=== PATIENT | male | born 1975 | race Caucasian/White ===

== ENCOUNTER → 2018-07-07 11:37 | Outpatient (POV) | payer BC, SELFPAY | PROVIDERS: Visit Provider Dermatology | DX: Z00.00 Encounter for general adult medical examination without abnormal findings (principal) ==

== ENCOUNTER → 2018-10-13 14:06 | Outpatient (POV) | payer BC, SELFPAY | PROVIDERS: Visit Provider Dermatology | DX: Z00.00 Encounter for general adult medical examination without abnormal findings (principal) ==

== ENCOUNTER → 2019-01-28 16:12 | Outpatient (CLI) | payer BC, SELFPAY ==
[2019-01-28 16:39] LABS: Blood Urea Nitrogen 13 mg/dL (7-18); Creatinine,Serum 1.03 mg/dL (0.70-1.30); Estimated Glomerular Filt Rate 78 ml/min (>60); GFR (African American) 94 ML/MIN (>60)
--- NOTE | 2019-01-28 18:19 | CT_ITS ---
PROCEDURE: CT ABDOMEN PELVIS W CON CLINICAL HISTORY: LLQ PAIN Left-sided abdominal pain. COMPARISON: ABDPELW/O CT ABD PELVIS W/O CONTRAST from 09/09/2016 TECHNIQUE: 75 mL Optiray 350 Axial images obtained with sagittal and coronal reformats. All CT scans at the facility use one or more dose reduction, viz: automated exposure control, ma/kV adjustment per patient size (including targeted exams where dose is matched to indication, i.e. head), or iterative reconstruction technique. FINDINGS: There is calcified granuloma in the right lung base. The liver, gallbladder, spleen, adrenal glands, and pancreas have an unremarkable appearance. There are surgical clips along the tail the pancreas. There is a 5 cm left renal cyst. Nonobstructing left renal calculi are noted measuring up to 4 mm. No hydronephrosis. No ureteral calculi. No intestinal obstruction or free air. The appendix is not clearly delineated. Surgical clips are present along the left pericolic gutter. There is mild thickening of the sigmoid colon and rectum which may be seen with colitis/proctitis. No evidence of diverticulitis. The prostate is slightly enlarged. Anastomosis has an unremarkable appearance at the sigmoid area. 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 No acute bony anomalies. IMPRESSION: There are postsurgical changes of the abdomen. There is mild thickening of the sigmoid colon and rectum. This is nonspecific and could be due to nondistention versus proctocolitis. Correlation with clinical parameters are needed. Other nonacute findings as described above. Dictated by: Acosta Dutta MD 01/29/2019 07:48 Signed by: <Electronically signed by Acosta Dutta MD in [place]> 01/29/2019 07:48
== END ==
PROVIDERS: Visit Provider Family Medicine
DX: R10.32 Left lower quadrant pain (principal); R10.9 Unspecified abdominal pain; K57.90 Diverticulosis of intestine, part unspecified, without perforation or abscess without bleeding; Z98.890 Other specified postprocedural states
CPT/HCPCS: 36415; 74177; 82565; 84520; Q9967

== ENCOUNTER → 2019-11-16 10:45 | Outpatient (POV) | payer BC, SELFPAY | PROVIDERS: PCP Family Medicine; Visit Provider Physician Assistant | DX: Z00.00 Encounter for general adult medical examination without abnormal findings (principal) ==

== ENCOUNTER → 2019-12-17 07:43 | Outpatient (CLI) | payer BC, SELFPAY ==
--- NOTE | 2019-12-17 07:55 | CT_ITS ---
PROCEDURE: CT ABDOMEN PELVIS WO CON CLINICAL INDICATION: KIDNEY STONES COMPARISON: CT ABDOMEN PELVIS WO CON from 02/10/2019 TECHNIQUE: Axial images obtained with sagittal and coronal reformats. All CT scans at the facility use one or more dose reduction, viz: automated exposure control, ma/kV adjustment per patient size (including targeted exams where dose is matched to indication, i.e. head), or iterative reconstruction technique. FINDINGS: Lower thorax: The lower lung mckoy are clear and there is no pleural fluid. ABDOMEN: Liver: The liver is normal in size and shows overall decreased density consistent with mild diffuse hepatic steatosis. There are no focal lesions seen. Gallbladder: The gallbladder is normal in size. The tiny partially calcified gallstone near the neck of the gallbladder stable and unchanged from previous exam. Pancreas: No masses or peripancreatic fluid collections. Spleen: unremarkable Adrenals: unremarkable Kidneys/ureters: The kidneys are normal size. There is a stable benign-appearing exophytic cortical cyst midpole left kidney measuring 5.6 by 5.0 by 5.0 cm. There is a 3-4 mm nonobstructing calculus lower pole calyx left kidney. The right kidney appears normal. ABDOMEN & PELVIS: Stomach bowel: The stomach appears normal. Small bowel is unremarkable. There is moderate stool and gas seen in the cecum and ascending and transverse colon. There multiple surgical clips left upper quadrant and adjacent to the descending colon. There are circumferential surgical clips near the rectosigmoid junction. Peritoneum: No abnormal fluid collections. No obvious inflammatory changes. No free air. Lymph nodes: No enlarged lymph nodes apparent. Vasculature: No evidence of abdominal aortic aneurysm. No retroperitoneal hemorrhage evident. Bones: No acute fracture PELVIS: Reproductive: unremarkable Bladder: The urinary bladder is partially decompressed. The prostate is borderline enlarged. Appendix: Not definitely visualized but there are no findings to suggest appendicitis. IMPRESSION: Stable exophytic benign-appearing cortical cysts left kidney along with nonobstructing calculus lower pole left kidney, post surgical changes likely involving the descending and sigmoid colon. No acute intra-abdominal or pelvic pathology identified. Probable partially calcified gallstone as noted on the previous CT exam. Dictated by: Dr. Carroll Finn MD 12/17/2019 08:[address] Carroll Finn MD in [place] 12/17/2019 08:31
== END ==
PROVIDERS: PCP Family Medicine; Visit Provider Family Medicine
DX: R10.9 Unspecified abdominal pain (principal); Z87.442 Personal history of urinary calculi
CPT/HCPCS: 74176

== ENCOUNTER 2019-12-30 13:00 | Outpatient (RCR) | payer BC, SELFPAY ==
--- NOTE | 2019-11-29 11:17 | HMH.PTOPEV ---
PT Outpatient Evaluation Rehab PT Outpatient Evaluation Start: 11/29/19 08:53 Freq: Status: Active Protocol: Document 11/29/19 11:05 CARA (Rec: 11/29/19 11:17 PHORNE [id number]) Electronically Signed By Guerrero Smith, PT 11/29/19 11:05 Outpatient Therapy Subjective History Subjective History Pt is 44 yo wm who presents with c/o L lateral hip pain and intermittent numbness/ tingling throughout the L LE x ~ 3 wks. He reports having similar symptoms from time to time over the past 10 yrs. He reports stretching and ice help his symptoms. He reports PMH of DM-I. R LE 8 mm long with leg length measurments this date. Chief Complaint Pain Symptom Type Ache,Sharp,Numbness,Tingling Symptoms Relieved By Rest/Positioning,Ice Symptoms Aggravated By Physical Activity,Walking Prior Functional Limitations None Current Functional Limitations Walking Symptom Description Constant but Variable Level of pain today (0-10) 2 Pain scale - at its worst (0-10) 8 Hip/Knee Eval Palpation Tenderness right Hip Palpation Findings Tenderness MMT Hip Flexion Strength Grade 5 Normal Hip Abduction Strength Grade 4 Good Hip Adduction Strength Grade 5 Normal Hip Extension Strength Grade 5 Normal Special Tests Hip Bowstring (Cram) Test Negative Left,Positive Right Sciatic Nerve Tension Test Negative Left,Positive Right Hip Scouring (Quadrant) Test Negative Left,Negative Right Outpatient Therapy Assessment Impairments Problems/Impairmments Palpation Tenderness,Impaired Strength,Impaired Endurance, Impaired Walking,Subjective C/ O Pain,Impaired Self Care/Self Management Prognosis Rehab Potential Good Clinical Impression Consistent with Diagnosis Yes Short Term Goals Number of Weeks 4 Decreased Palpation Tenderness Yes: to min Increase Strength Yes: R LE 4+/5 throughout Decrease Subjective C/O Pain Yes: 10/09 Patient to be Ind w/ HEP Yes Longterm Goals Number of Weeks 8 Decreased Palpation Tenderness Yes: to none Increase Strength Yes: R LE 5/5 throughout Increase Ability to Walk Yes Decrease Subjective C/O Pain Yes: 06/11 Patient to be Ind w/ Advanced HEP Yes Outpatient Therapy Plan of Care Treatment Plan May Include Therapeutic Exercise Including Bailey
--- NOTE | 2019-12-28 13:56 | HMH.RHREAS ---
Rehab Reassessment Rehab OP Re-assessment Start: 12/28/19 13:52 Freq: Status: Active Protocol: Document 12/28/19 13:53 CARA (Rec: 12/28/19 13:56 CARA [id number]) Electronically Signed By Guerrero Smith, PT 12/28/19 13:53 Rehab Re-assessment Subjective Subjective Pt reports feeling much better , but continued symptoms in the R lower leg (numbness/ tingling and pain intermittently). Objective Objective Notes R LE MMT grossly 4+/5 throughout hip. Continues to present without pelvic rotation. Assessment Progress Assessment Progressing as Expected Assessment Notes Continues to improve steadily with strength, no pain now in R greater troch. Patient goals met ST,2,3,4 Goals Not Met LT,2,3,4,5 Revised Goals none Plan Plan Continue per initial POC. Frequency of Therapy 2 x/wk Duration of therapy 8 wks Time and Billing Re-Eval Time 15 Re-Eval Billing Units 1 PHYSICIAN CERTIFICATION: I certify the specified therapy services for Sachin Salas are required, authorized, and reviewed every 30 days.
== END 2019-12-30 13:05 | disposition home or self-care (01) ==
LOC: PT 13:00
PROVIDERS: PCP Family Medicine; Visit Provider Family Medicine
DX: M70.61 Trochanteric bursitis, right hip (principal); G57.01 Lesion of sciatic nerve, right lower limb
CPT/HCPCS: 20561; 97010; 97012; 97014; 97033; 97035; 97110; 97140; 97163; 97164; 97760; G0283

== ENCOUNTER → 2020-01-18 08:53 | Outpatient (CLI) | payer BC, SELFPAY ==
[2020-01-18 09:06] LABS: Basophils % 0.4 % (0.1-2.0); Eosinophils # 0.2 K/mm3 (0.0-0.4); Eosinophils % 2.7 % (0.1-12.0); Hematocrit 46.1 % (42.0-52.0); Hemoglobin 15.9 g/dL (14.1-18.0); Lymphocytes # 2.6 K/mm3 (0.7-4.5); Lymphocytes % 45.1 % (10-50); Mean Corpuscular HGB Conc 34.4 g/dL (31.8-35.4); Mean Corpuscular Hemoglobin 30.5 pg (27.0-31.2); Mean Corpuscular Volume 88.6 fl (80-94); Mean Platelet Volume 8.6 fl (7.4-10.4); Monocytes # 0.5 K/mm3 (0.1-1.0); Monocytes % 7.8 % (1.7-9.3); Neutrophils # 2.5 K/mm3 (1.8-7.8); Neutrophils % 43.9 % (37.0-80.0); Platelet Count 175 K/mm3 (142-424); Red Blood Count 5.21 M/mm3 (4.60-6.20); Red Cell Distribution Width 13.5 % (11.5-17.5); White Blood Count 5.8 K/mm3 (4.8-10.8)
[2020-01-18 09:13] LABS: Blood Urea Nitrogen 23 mg/dl (9-20); Estimated Glomerular Filt Rate 91 ml/min (>60); GFR (African American) 110 ML/MIN (>60)
[2020-01-18 09:19] LABS: Activated Partial Thrombo Time 23.4 seconds (23.6-34.0); Prothrombin Time 10.3 seconds (9.4-11.8)
[2020-01-18 09:44] LABS: POC Glucose,Bedside 98 (70-110)
--- NOTE | 2020-01-18 10:17 | CT_ITS ---
PROCEDURE: CT BIOPSY GUIDED NEEDLE CLINICAL HISTORY: renal cyst Renal cyst aspiration Left flank pain with enlarging renal cyst COMPARISON: CT CT ABDOMEN PELVIS WO CON from 12/17/2019 TECHNIQUE: Axial images obtained with sagittal and coronal reformats. All CT scans at the facility use one or more dose reduction, viz: automated exposure control, ma/kV adjustment per patient size (including targeted exams where dose is matched to indication, i.e. head), or iterative reconstruction technique. FINDINGS: Following obtaining informed consent and time-out procedure, the patient was placed in the prone position on the CT table and the left renal cyst was localized using standard technique. Conscious sedation performed with 1 mg of Versed and 25 mcg of fentanyl IV. Under aseptic conditions and local anesthesia with 1 percent buffered lidocaine, using a Blu's kit, the left renal cyst was accessed and 4 Gabonese sheath placed in the renal cyst. Approximately 35 cc of serous fluid was aspirated. The cyst was nearly completely aspirated. A 50 50 percent mixture Optiray 320 and normal sailing mixture was injected into the cyst.. The contrast does not appear to communicate with the renal collecting system however there did appear to be a small amount of perirenal extravasation of contrast therefore, ablation with alcohol was not performed. The contrast was unable to be aspirated through the sheath. Therefore, a 21 gauge spinal needle was inserted into the cyst and the contrast was then aspirated. The patient tolerated the procedure well without evidence of immediate complication. The patient left radiology suite in stable condition and recovered in the outpatient recovery area without consequence. Cytology was performed of the cyst fluid and was a nondiagnostic specimen, virtually acellular. IMPRESSION: Uneventful CT-guided aspiration of the left renal cyst. Dictated by: Acosta Dutta MD 01/21/2020 11:53 Acosta Dutta MD in [place] 01/21/2020 11:53
== END ==
PROVIDERS: PCP Family Medicine; Visit Provider Urology
DX: N28.1 Cyst of kidney, acquired (principal)
CPT/HCPCS: 10009; 36415; 74176; 77012; 82565; 82962; 84520; 85025; 85610; 85730

== ENCOUNTER → 2020-08-08 12:59 | Outpatient (POV) | payer BC, OTHER, SELFPAY | PROVIDERS: Visit Provider Dermatology | DX: Z00.00 Encounter for general adult medical examination without abnormal findings (principal) ==

== ENCOUNTER → 2020-08-14 10:18 | Outpatient (CLI) | payer BC, OTHER, SELFPAY ==
[2020-08-14 11:40] LABS: Coronavirus 19 IgG Antibody Negative (Negative); Coronavirus 19 IgM Antibody Negative (Negative)
== END ==
PROVIDERS: Visit Provider Surgery
DX: Z01.818 Encounter for other preprocedural examination (principal); Z11.52 Encounter for screening for COVID-19; Z12.11 Encounter for screening for malignant neoplasm of colon
CPT/HCPCS: 36415; 86328

== ENCOUNTER 2020-08-16 07:32 | Day surgery (SDC) | payer BC, OTHER, SELFPAY ==
[2020-08-10 13:27] VITALS: BMI 28.7
[2020-08-16 07:43] VITALS: BP 156/97; PULSE 77; RESP 18; TEMP 36.6; O2SAT 99
[2020-08-16 08:18] LABS: POC Glucose,Bedside 121 (70-110)
[2020-08-16 08:52] VITALS: O2SAT 97
--- NOTE | 2020-08-16 08:53 | P.PN_ITS ---
[facility] Anesthesia Checklist - Structural Data Admitted From: Home Planned Operative Procedure/s: colonoscopy Consent for Planned Operative Procedure(s) Verified: Yes - Additional verifications Anesthesia Reactions: No - Airway Assessment C-Spine Mobility Assessed: Yes TMJ Mobility Assessed: Yes Dentition: Good Dentition - Neurological Assessment Level of Consciousness: Awake, Alert, Appropriate - Anesthesia Plan Anesthesia Risk discussed: Yes Anesthesia Plan: Verified ASA Class: II Anesthesia Type: MAC [facility] History I have reviewed the patient's past medical history: Yes Medical History: Reports:: Diabetes Mellitus Type 2, Gall Bladder Disease, Kidney Stones, MRSA Denies:: Cancer, Diabetes Mellitus Type 1, Internal Pacemaker, Lung Disease, Seizures *Have you ever received a pneumonia vaccine?: Yes *Have you received a flu vaccine this season?: Yes Anesthesia experience/problems:: none Laterality Cases: Right: Arthroscopy Shoulder Other Surgeries: Yes: Appendectomy, Colonoscopy, Colon Resection, Other. No: Pacemaker Amputation: No Fractures: No - *Social History Last grade of school completed: Some college Smoking Status: Never smoker Alcohol Intake: never Substance Use Type: denies use *Occupational Status:: employed Housing: house Household Members: spouse *Travel in the last 8 weeks: None Family Hx:: No significant family history
--- NOTE | 2020-08-16 09:18 | HMH.SCOPE ---
- Procedure: Date: 08/16/20 Patient Date of :: 1975 Procedure Performed:: Total colonoscopy to terminal ileum with multiple polypectomy using snare and biopsy forceps Indications:: Patient is a very pleasant 45-year-old white male who is well-known to me. In 2012 he had developed significant complicated diverticulitis with pneumoperitoneum and peritonitis requiring Hidalgo's procedure with colostomy. In anticipation of colostomy takedown I had performed a colonoscopy and he had 6 tubular adenomas removed. He ultimately underwent colostomy reversal and I had performed a follow-up colonoscopy in 2015 at which time he had 4 tubular adenomas removed. Follow-up colonoscopy was done on 12/23/17. He had several polyps removed. Many of these were hyperplastic and lymphoid aggregate. He did 2 tubular adenomas removed. Recommendations were for follow-up colonoscopy within 3 years. Performing Provider:: Ricky Miller MD Referring Provider:: None Sedation:: MAC sedation Procedure:: Patient was taken to endoscopy procedure room. He was positioned in a lateral decubitus position. Adequate intravenous sedation was achieved with anesthesia titration of propofol. Variable stiffness Olympus colonoscope was inserted via the anus. Was advanced to the cecum without difficulty. Ileocecal valve and appendiceal orifice were clearly identified. In the ascending colon there was a small adenomatous appearing polyp removed with cold cutting snare. In the descending colon there was a larger adenomatous appearing polyp removed with cold cutting snare. In the sigmoid colon there was a small polyp removed with cold cutting snare. In the rectosigmoid region anastomosis was identified about 15 to 17 cm from the anal verge. Just distal to this there were a couple of diverticuli. There was a tiny diminutive polyp which was removed with cold biopsy forceps. There was some minor oozing and therefore Hemoclip was deployed resulting in good hemostasis. Retroflexion revealed internal hemorrhoids which appeared nonpathologic. Colonoscope was withdrawn. Findings:: Polyps as noted above Anastomosis approximately 15 to 17 cm from the anal verge Nonpathologic internal hemorrhoids Recommendations:: Likely repeat colonoscopy in 3 years pending the pathology Complications:: None immediately apparent Estimated blood obtained (mL): 3
[2020-08-16 09:20] VITALS: BP 90/63; PULSE 97; RESP 18; TEMP 36.1; O2SAT 94
[2020-08-16 09:30] VITALS: BP 100/64; PULSE 85; RESP 18; TEMP 36.1; O2SAT 95
[2020-08-16 09:40] VITALS: BP 117/69; PULSE 72; RESP 18; TEMP 36.1; O2SAT 100
[2020-08-16 09:50] VITALS: BP 112/75; PULSE 74; RESP 18; TEMP 36.2; O2SAT 100
== END 2020-08-16 09:55 | disposition home or self-care (01) ==
LOC: OUTP 07:33
PROVIDERS: PCP Family Medicine; Visit Provider Surgery
PROC: 0DJD8ZZ Inspection of Lower Intestinal Tract, Via Natural or Artificial Opening Endoscopic (ICD-10-PCS; CPT 45385; principal; 2020-08-16 08:30)
DX: Z12.11 Encounter for screening for malignant neoplasm of colon (principal); Z86.010 Personal history of colon polyps; Z87.19 Personal history of other diseases of the digestive system; K63.5 Polyp of colon; K64.9 Unspecified hemorrhoids; E11.9 Type 2 diabetes mellitus without complications; Z87.442 Personal history of urinary calculi; Z86.14 Personal history of Methicillin resistant Staphylococcus aureus infection; Z90.49 Acquired absence of other specified parts of digestive tract; Z87.39 Personal history of other diseases of the musculoskeletal system and connective tissue; Z79.84 Long term (current) use of oral hypoglycemic drugs
CPT/HCPCS: 45385; 45380; 82962

== ENCOUNTER → 2020-10-17 13:21 | Outpatient (CLI) | payer BC, OTHER, SELFPAY ==
--- NOTE | 2020-10-17 13:26 | CT_ITS ---
PROCEDURE: CT ABDOMEN PELVIS WO CON CLINICAL INDICATION: LT FLANK PAIN, RENAL CYST, LEFT COMPARISON: CT ABDPELW CT ABD PELVIS W/ CONTRAST from 01/04/[address] ABDOMEN PELVIS WO CON from 12/17/[address] BIOPSY GUIDED NEEDLE from 01/18/2020 TECHNIQUE: Axial images obtained with sagittal and coronal reformats. All CT scans at the facility use one or more dose reduction, viz: automated exposure control, ma/kV adjustment per patient size (including targeted exams where dose is matched to indication, i.e. head), or iterative reconstruction technique. FINDINGS: LOWER THORAX: No acute finding ABDOMEN & PELVIS: The liver has an unremarkable appearance. There is a stable central splenic hypodensity at approximately 10 mm. Surgical clips are present in the left upper quadrant. There is some stable slight increased soft tissue density in this region some of which may be due to the pancreas. Pancreas has an otherwise unremarkable appearance. There are bilateral renal calculi with small stones on the right measuring up to 3 mm. On the left there is a 6 mm stone in the proximal left ureter causing mild left-sided hydronephrosis and proximal hydroureter. In addition, there is a small 4 mm stone just distal to the larger stone in the proximal left ureter. Stones are present in the left kidney measuring up to 5 mm. There is a 5.8 x 4.4 cm left renal cyst. No intestinal obstruction or free air. Postsurgical changes are present involving the anterior abdominal wall. No evidence of appendicitis. There is a mild amount of retained colonic feces. There postsurgical changes at the rectosigmoid region of the colon with an anastomosis. Scattered surgical clips are present in the abdomen on the left. There are scattered small sclerotic foci in the hips and may represent bone islands with degenerative changes of the hips and spine noted. A sclerotic focus is also present involving the pedicle of L3 on the left stable the prostate is prominent at 5 cm. IMPRESSION: 1. 6 mm proximal left ureteral stone with mild left hydroureteronephrosis. A small 4 mm stone is present in the left ureter just distal to the larger stone. 2. Bilateral nephrolithiasis. 3. 5.8 x 4.4 cm left renal cyst. Dictated by: Acosta Dutta MD 10/18/2020 11:28 Acosta Dutta MD in [place] 10/18/2020 11:28
== END ==
PROVIDERS: PCP Family Medicine; Visit Provider Family Medicine
DX: R10.9 Unspecified abdominal pain (principal); N28.1 Cyst of kidney, acquired
CPT/HCPCS: 74176

== ENCOUNTER 2020-10-27 13:01 | Emergency (ER) | payer BC, OTHER, SELFPAY ==
[2020-10-27 13:01] VITALS: BP 154/93; PULSE 75; RESP 16; TEMP 37.1; O2SAT 98; BMI 27.1
--- NOTE | 2020-10-27 13:04 | HMH.EDGENADL ---
ED Disposition Clinical Impression: Flank pain, acute Disposition: Home, Self-Care Condition on Discharge: Good Referrals: Sal Bullock MD [Primary Care Provider] - 3 days Time of Disposition: 14:52 - Critical Care Critical Care Time: No Attestation: On , the high probability of a clinically significant, sudden or life threatening deterioration of the following system(s) required my full and direct attention, intervention and personal management. The time I documented below is in addition to time spent performing reported procedures but includes the following listed in this critical care notation. Medical Decision Making - Medical Records Medical records reviewed: Yes: I reviewed the patient's medical records. - Trevor Inquiry Pt receiving controlled substance: No Vital Signs: 10/27/20 13:01 10/27/20 14:30 Temperature 98.7 F Temperature Source Oral Pulse Rate 93 H Pulse Rate [Radial] 75 Respiratory Rate 16 20 Blood Pressure 117/79 Blood Pressure [Right Arm] 154/93 H Blood Pressure Mean 97 Blood Pressure Mean [Right Arm] 113 Blood Pressure Position [Right Arm] Sitting 02 Sat by Pulse Oximetry 98 94 L Oxygen Delivery Method Room Air - Lab Data Lab results reviewed: Yes: I reviewed the patient's lab results. Lab Results 10/27/20 13:00: Urine Color Yellow, Urine Appearance Clear, Urine pH 6.5, Ur Specific [place] >= 1.030, Urine Protein 3+, Urine Glucose (UA) Trace, Urine Ketones Trace, Urine Blood 3+, Urine Nitrate Positive, Urine Bilirubin 2+ A, Urine Urobilinogen 4.0, Ur Leukocyte Esterase 1+ A, Urine RBC Tntc, Urine WBC Occasional, Ur Squamous Epith Cells None, Urine Bacteria None, Urine Yeast 1+ Orders (Tests/Meds): ORDERS Category Date Time Status Urine Culture Stat Micro 10/27/20 13:00 Received - US Data US Images: Renal ED US Reviewed: Yes: I have viewed radiologist's interpretation Preliminary Findings: Normal/NAD Findings Narrative: Slight hydro to the left side, as expected given recent stenting. Medical Decision Narrative: 45yo M evaluated for left flank pain. Provided Toradol and Zofran for symptom management. Patient is provided a urine sample which will be hematuric based off of history. Patient is going for an ultrasound of the kidney at this time as he had a CAT scan less than a week ago. Reviewed urinalysis shows 1+ leukoesterase. Ultrasound is without gross hydronephrosis or obvious kidney stone. Patient is already on Bactrim and hydrocodone from his urologist. He was treated with Toradol in the emergency department and reports they gave him for greater relief than the hydrocodone. Has not been on Toradol in the past. Will prescribe 4 days worth of Toradol. Patient is to follow-up with urologist as directed. General Adult HPI - General Stated complaint: possible kidney stone Time Seen by Provider: 10/27/20 13:04 Mode of Arrival: Ambulatory - History of Present Illness HPI narrative: 45yo M evaluated for left flank pain. Patient was recently treated in [place] for kidney stones. He states he was diagnosed with 3 kidney stones for which urology performed laser lithotripsy with stent placement on the left side on Friday. He reports he was seen in [place] today and the stent was removed. He developed severe pain on the ride home. Denies any fever. - Related Data Home Medications Medication Instructions Recorded Confirmed metformin 1,000 mg tablet 1,000 mg PO BID 11/17/17 10/27/20 Allergies Allergy/AdvReac Type Severity Reaction Status Date / Time No Known Allergies Allergy Verified 08/28/20 14:43 [facility] History - Hepatitis A Screen Drug use history?: No Attestation statement:: This patient has been screened for Hepatitis A risk factors. I have reviewed the patient's past medical history: Yes Medical History: Reports:: Diabetes Mellitus Type 2, Gall Bladder Disease, Kidney Stones, MRSA Denies:: Cancer, Diabetes Me
[2020-10-27 13:25] LABS: Microscopic, Urine URINE MICROSCOPIC (MICROSCOPIC)
[2020-10-27 13:27] LABS: Appearance,Urine CLEAR (Clear); Blood, Urine 3+ (Negative); Color,Urine YELLOW (Yellow); Glucose,Urine (UA) TRACE (Negative); Ketones,Urine TRACE (Negative); Leukocyte Esterase,Urine 1+ (Negative); Nitrate,Urine POSITIVE (Negative); PH,Urine 6.5 (5.0-8.5); Protein,Urine 3+ (Negative); Specific Gravity, Urine >= 1.030 (1.005-1.030)
--- NOTE | 2020-10-27 13:32 | US_ITS ---
PROCEDURE: US KIDNEY CLINICAL INDICATION: pain, recent stent COMPARISON: CT CT ABDOMEN PELVIS WO CON from 10/17/2020 FINDINGS: Right kidney measures 10.6 x 5.1 by 5.8 cm and shows a good corticomedullary junction. The renal cortex measures 1.5 cm. No hydronephrosis and no definite renal calculi. The spleen appears normal. The left kidney measures 12.4 x 6.7 by 9.2 cm. There is a dominant benign-appearing cortical cyst mid to lower pole measuring 7.0 x 5.1 by 5.2 cm. There is minimal hydronephrotic change. There is a possible tiny calculus seen mid pole in the previous CT scan abdomen pelvis 10/17/2020 showed a small 5.5 mm calculus within a lower pole calyx. There is normal vascularity noted. IMPRESSION: Grossly normal appearing right kidney, stable benign-appearing cortical cyst left kidney with minimal hydronephrotic change seen post lithotripsy Dictated by: Dr. Carroll Finn MD 10/27/2020 14:35 Dr. Carroll Finn MD in [place] 10/27/2020 14:35
[2020-10-27 13:50] LABS: Bilirubin,Urine 2+ (Negative)
[2020-10-27 14:09] LABS: RBC,Urine TNTC #/hpf (0-3)
[2020-10-27 14:15] LABS: Yeast,Urine 1+ /lpf
[2020-10-27 14:17] LABS: WBC,Urine Occasional #/hpf (0-3)
[2020-10-27 14:30] VITALS: BP 117/79; PULSE 93; RESP 20; O2SAT 94
[2020-10-27 14:55] VITALS: BP 117/79; PULSE 93; RESP 20; TEMP 36.9; O2SAT 98
== END 2020-10-27 15:01 | disposition home or self-care (01) ==
PROVIDERS: Emergency Provider Family Medicine; PCP Family Medicine
DX: R10.32 Left lower quadrant pain (principal); Z87.442 Personal history of urinary calculi; E11.9 Type 2 diabetes mellitus without complications
CPT/HCPCS: 76770; 81001; 87086; 99282; J2405

== ENCOUNTER → 2021-04-20 12:37 | Outpatient (CLI) | payer BC, SELFPAY ==
[2021-04-20 14:36] LABS: Blood Urea Nitrogen 17 mg/dl (9-20); Estimated Glomerular Filt Rate 103 ml/min (>60); GFR (African American) 125 ML/MIN (>60)
== END ==
PROVIDERS: Visit Provider Family Medicine
DX: R10.32 Left lower quadrant pain (principal); K57.90 Diverticulosis of intestine, part unspecified, without perforation or abscess without bleeding; Z98.890 Other specified postprocedural states
CPT/HCPCS: 36415; 82565; 84520

== ENCOUNTER → 2021-04-24 09:36 | Outpatient (CLI) | payer BC, SELFPAY ==
--- NOTE | 2021-04-24 09:39 | CT_ITS ---
PROCEDURE: CT ABDOMEN PELVIS W CON CLINICAL INDICATION: INTERMITTENT LLQ ABD PAIN,DIVERTICULOSIS COMPARISON: CT CT ABDOMEN PELVIS WO CON from 10/17/2020 TECHNIQUE: IV Contrast: 75ML Isovue 370 Oral Contrast None Axial images obtained with sagittal and coronal reformats. All CT scans at the facility use one or more dose reduction, viz: automated exposure control, ma/kV adjustment per patient size (including targeted exams where dose is matched to indication, i.e. head), or iterative reconstruction technique. FINDINGS: LOWER THORAX: Calcified nodule in the right middle lobe posteriorly. ABDOMEN & PELVIS: Fatty liver. No focal liver lesion apparent. The spleen, adrenal glands, pancreas, have an unremarkable appearance. Small hyperdensity noted along the posterior aspect of the gallbladder suggesting gallstones. Benign-appearing 6 cm left renal cyst. Non-obstructing 4 mm stone in the mid aspect of the right kidney. 5 mm nonobstructing stone lower pole left kidney. No hydronephrosis. No ureteral calculi. No intestinal obstruction or free air the. No evidence of appendicitis. There are numerous surgical clips in the left pericolic gutter region and along the left anterior pararenal fascia and the inferior and anterior aspect of the spleen suspected from prior colon surgery. There is an anastomosis at the sigmoid region. No evidence of intestinal obstruction. No evidence of diverticulitis. There are degenerative changes of the hips with scattered sclerotic foci of the pelvis which may be due to bone islands. IMPRESSION: 1. No acute finding. No evidence of diverticulitis 2. Cholelithiasis. 3. 6 cm benign-appearing left renal cyst. 4. Postsurgical changes of the colon at the sigmoid region. Dictated by: Acosta Dutta MD 04/25/2021 11:49 Acosta Dutta MD in [place] 04/25/2021 11:49
== END ==
PROVIDERS: PCP Family Medicine; Visit Provider Family Medicine
DX: R10.32 Left lower quadrant pain (principal); K57.90 Diverticulosis of intestine, part unspecified, without perforation or abscess without bleeding; Z98.890 Other specified postprocedural states
CPT/HCPCS: 74177; Q9967

== ENCOUNTER 2021-06-19 05:42 | Emergency (ER) | payer BC, SELFPAY ==
[2021-06-19 05:43] VITALS: BP 142/92; PULSE 84; RESP 16; TEMP 36.4; O2SAT 99; BMI 29.7
--- NOTE | 2021-06-19 06:08 | CT_ITS ---
FINAL REPORT CLINICAL HISTORY: rt flank pain COMPARISON: April 24, 2021 FINDINGS: Axial CT images of the abdomen and pelvis were obtained without intravenous contrast. Coronal reformatted images were also obtained.This study was performed with techniques to keep radiation doses as low as reasonably achievable (ALARA). Individualized dose reduction techniques using automated exposure control or adjustment of mA and/or kV according to the patient's size were employed. Abdomen: There is a calcified granuloma in the right lung base. There is mild fatty infiltration of the liver. There is a gallstone in the gallbladder. There are several nonobstructing renal stones. There is a stable posterior left renal cyst. There is mild right hydronephrosis and hydroureter secondary to a 2 mm distal right ureteral stone at the level of the upper pelvis. The spleen, pancreas and adrenal glands have an unremarkable unenhanced appearance. Postoperative changes are seen in the left abdomen and pelvis. Pelvis: Images of the pelvis reveal no mass or abnormal fluid collection. The appendix is not identified. IMPRESSION: Mild right hydronephrosis and hydroureter secondary to a distal right ureteral stone. Bilateral nephrolithiasis. Cholelithiasis. Reviewed, Interpreted and Dictated by Ricky Patel III, MD Transcribed by Asaf Guerrero Authenticated by Ricky Patel III, MD on 06/19/2021 07:55:03 [facility]
[2021-06-19 06:15] LABS: Microscopic, Urine URINE MICROSCOPIC (MICROSCOPIC)
[2021-06-19 06:18] LABS: Appearance,Urine CLOUDY (Clear); Blood, Urine 3+ (Negative); Color,Urine BROWN (Yellow); Glucose,Urine (UA) 3+ (Negative); Ketones,Urine TRACE (Negative); Leukocyte Esterase,Urine TRACE (Negative); Nitrate,Urine POSITIVE (Negative); PH,Urine 6.5 (5.0-8.5); Protein,Urine 2+ (Negative); Specific Gravity, Urine >= 1.030 (1.005-1.030)
[2021-06-19 06:19] LABS: Basophils # 0.1 K/mm3 (0-0.2); Basophils % 1.3 % (0.1-2.0); Eosinophils # 0.2 K/mm3 (0.0-0.4); Eosinophils % 3.2 % (0.1-12.0); Hematocrit 52.2 % (42.0-52.0); Hemoglobin 16.9 g/dL (14.1-18.0); Lymphocytes # 1.6 K/mm3 (0.7-4.5); Lymphocytes % 32.8 % (10-50); Mean Corpuscular HGB Conc 32.3 g/dL (31.8-35.4); Mean Corpuscular Hemoglobin 29.3 pg (27.0-31.2); Mean Corpuscular Volume 90.8 fl (80-94); Mean Platelet Volume 8.8 fl (7.4-10.4); Monocytes # 0.5 K/mm3 (0.1-1.0); Monocytes % 9.6 % (1.7-9.3); Neutrophils # 2.6 K/mm3 (1.8-7.8); Neutrophils % 53.1 % (37.0-80.0); Platelet Count 194 K/mm3 (142-424); Red Blood Count 5.76 M/mm3 (4.60-6.20); Red Cell Distribution Width 13.5 % (11.5-17.5)
[2021-06-19 06:29] LABS: Alanine Aminotransferase 27 U/L (12-78); Albumin Level 4.3 g/dl (3.5-5.0); Albumin/Globulin Ratio 1.4 (1.1-1.8); Alkaline Phosphatase 99 U/L (38-126); Anion Gap 10.1 mEq/L (5-15); Aspartate Amino Transferase 39 U/L (17-59); Bilirubin,Total 0.8 mg/dl (0.2-1.3); Blood Urea Nitrogen 18 mg/dl (9-20); Calcium 8.9 mg/dl (8.4-10.2); Carbon Dioxide 30 mmol/L (22.0-30.0); Chloride 102 mmol/L (98-107); Creatinine Clearance Estimated 115 mL/min (50-200); Estimated Glomerular Filt Rate 71 ml/min (>60); GFR (African American) 86 ML/MIN (>60); Glucose 189 mg/dl (74-100); Potassium 4.1 mmoL/L (3.5-5.1); Sodium 138 mmol/L (136-145); Total Protein,Serum 7.3 g/dl (6.3-8.2)
[2021-06-19 06:32] LABS: Bilirubin,Urine Negative (Negative)
[2021-06-19 06:34] LABS: C-Reactive Protein 1.6 mg/L (0-4)
[2021-06-19 06:43] VITALS: BP 133/91; PULSE 74; O2SAT 96
[2021-06-19 06:48] LABS: Procalcitonin 0.064 ng/mL (0.0-2.0)
[2021-06-19 06:52] LABS: Erythrocyte Sedimentation Rate 6 mm/hr (0-15)
--- NOTE | 2021-06-19 06:54 | HMH.EDNVD ---
ED Disposition Clinical Impression: Renal colic on right side Disposition: Home, Self-Care Condition on Discharge: Good Instructions: DI for Kidney Stones Additional Instructions: fluids and see pcp and urology Prescriptions: Tamsulosin HCl [Flomax 0.4mg capsule] 0.4 mg PO HS #10 cap Transmission Status: Pending to [id number] Ketorolac Tromethamine [Toradol 10mg tablet] 10 mg PO Q6HP PRN #8 tab MDD 40mg/day PRN Reason: Moderate To Severe Pain Transmission Status: Pending to [id number] Referrals: Sal Bullock MD [Primary Care Provider] - Binh Alvarez MD [Staff Physician] - - Critical Care Critical Care Time: No Attestation: On 06/19/21, the high probability of a clinically significant, sudden or life threatening deterioration of the following system(s) required my full and direct attention, intervention and personal management. The time I documented below is in addition to time spent performing reported procedures but includes the following listed in this critical care notation. Medical Decision Making - Medical Records Medical records reviewed: Yes: I reviewed the patient's medical records. - Trevor Inquiry Pt receiving controlled substance: No Vital Signs: 06/19/21 05:43 06/19/21 06:43 06/19/21 07:55 Temperature 97.5 F L Temperature Source Oral Pulse Rate 74 97 H Pulse Rate [Right] 84 Respiratory Rate 16 16 Blood Pressure 133/91 H 117/71 Blood Pressure [Right Arm] 142/92 H Blood Pressure Mean [Right Arm] 108 02 Sat by Pulse Oximetry 99 96 98 Oxygen Delivery Method Room Air Room Air - Lab Data Lab results reviewed: Yes: I reviewed the patient's lab results. Lab Results 06/19/21 05:49: Urine Color Brown, Urine Appearance Cloudy, Urine pH 6.5, Ur Specific [place] >= 1.030, Urine Protein 2+, Urine Glucose (UA) 3+, Urine Ketones Trace, Urine Blood 3+, Urine Nitrate Positive, Urine Bilirubin Negative, Urine Urobilinogen 1.0, Ur Leukocyte Esterase Trace, Urine RBC 10-20, Urine WBC 3-5, Ur Squamous Epith Cells Occasional, Calcium Oxalate Crystal 2+, Urine Bacteria 1+ 06/19/21 06:06: WBC 5.0, RBC 5.76, Hgb 16.9, Hct 52.2 H, MCV 90.8, MCH 29.3, MCHC 32.3, RDW 13.5, Plt Count 194, MPV 8.8, Neut % (Auto) 53.1, Lymph % (Auto) 32.8, [place] % (Auto) 9.6 H, Eos % (Auto) 3.2, Baso % (Auto) 1.3, Neut # (Auto) 2.6, Lymph # (Auto) 1.6, [place] # (Auto) 0.5, Eos # (Auto) 0.2, Baso # (Auto) 0.1, ESR 6 06/19/21 06:06: Sodium 138, Potassium 4.1, Chloride 102, Carbon Dioxide 30, Anion Gap 10.1, BUN 18, Creatinine 1.10, Estimated Creat Clear 115, Estimated GFR 71, Est GFR ( Amer) 86, Glucose 189 H, Calcium 8.9, Total Bilirubin 0.8, AST 39, ALT 27, Alkaline Phosphatase 99, C-Reactive Protein 1.6, Total Protein 7.3, Albumin 4.3, Globulin 3.0, Albumin/Globulin Ratio 1.4, Procalcitonin 0.064 Result diagrams: 06/19/21 06:06 06/19/21 06:06 Orders (Tests/Meds): ED MEDICATIONS Discontinued Medications Generic Name Dose Route Start Last Admin Trade Name Freq PRN Reason Stop Dose Admin Hydromorphone HCl 1 mg 06/19/21 06:09 06/19/21 06:13 Hydromorphone 2mg/Ml Syringe IV 06/19/21 06:10 1 mg ONCE ONE Administration Sodium Chloride 1,000 mls @ 999 mls/hr 06/19/21 06:15 06/19/21 06:13 Sod Chlor 0.9% 1000ml Bag IV 06/19/21 07:15 999 mls/hr .Q1H1M COLBY Administration Ondansetron HCl 4 mg 06/19/21 06:09 06/19/21 06:13 Ondansetron 4mg/2ml Vial IV 06/19/21 06:10 4 mg ONCE ONE Administration ORDERS Category Date Time Status Urine Culture Stat Micro 06/19/21 05:49 Received - CT Data CT Scan: Abdomen, Pelvis Time Received: 08:[address] Reviewed: Yes: I have viewed the radiologist's interpretation Preliminary Findings: Abnormal (2 mm stone ) Medical Decision Narrative: pt with acute rt kidney stone will refer to urology Nausea/Vomiting/Diarrhea HPI - General Chief complaint: Abdominal Pain Stated complaint: poss kidney ston
[2021-06-19 07:02] LABS: Calcium Oxalate Crystals,Urine 2+ /lpf; Squamous Epithelial Cell,Urine Occasional #/hpf (0-5)
[2021-06-19 07:03] LABS: Bacteria,Urine 1+ /lpf
[2021-06-19 07:55] VITALS: BP 117/71; PULSE 97; RESP 16; O2SAT 98
--- NOTE | 2021-06-19 08:29 | PC.NURSE ---
reviewed urine results with no new orders noted
[2021-06-19 08:30] VITALS: BP 120/68; PULSE 78; RESP 16; TEMP 36.6; O2SAT 98
== END 2021-06-19 08:36 | disposition home or self-care (01) ==
PROVIDERS: Emergency Provider Emergency Medicine; PCP Family Medicine
DX: N23 Unspecified renal colic (principal); Z87.442 Personal history of urinary calculi
CPT/HCPCS: 74176; 80053; 81001; 84145; 85025; 85651; 86140; 87086; 96365; 96375; 96376; 99283; J2405

== ENCOUNTER → 2021-06-21 14:52 | Outpatient (CLI) | payer BC, SELFPAY | PROVIDERS: PCP Family Medicine; Visit Provider Urology | DX: Z01.812 Encounter for preprocedural laboratory examination (principal); Z11.52 Encounter for screening for COVID-19; N20.0 Calculus of kidney | CPT/HCPCS: C9803; U0003; U0005 ==

== ENCOUNTER 2021-06-22 08:47 | Day surgery (SDC) | payer BC, SELFPAY ==
[2021-06-22] VITALS (11 sets, daily range): BP systolic 94–168; BP diastolic 56–100; PULSE 84–99; RESP 12–16; TEMP 36.7–43; O2SAT 92–99; BMI 29.5
--- NOTE | 2021-06-22 | XR_ITS ---
FINAL REPORT CLINICAL HISTORY: .OR case with c arm stone extraction FINDINGS: FLUORO TIME PROCEDURE: Fluoroscopy in the operating room. FINDINGS: Fluoroscopy time was provided by the radiology department for the clinical service. Two films were obtained. Fluoroscopy exposure time: 0.57 minutes IMPRESSION: See above Reviewed, Interpreted and Dictated by Ricky Patel III, MD Transcribed by Patrica Delarosa Authenticated by Ricky Patel III, MD on 06/22/2021 02:31:20 PM [facility]
--- NOTE | 2021-06-22 09:30 | P.PN_ITS ---
[facility] Anesthesia Checklist - Patient Identification Patient Identification: Arm Band - Structural Data Admitted From: Home Planned Operative Procedure/s: Ureteroscopy with stone extraction Consent for Planned Operative Procedure(s) Verified: Yes - NPO Status Verified Time NPO: 00:00 - Additional verifications Anesthesia Reactions: No - Airway Assessment C-Spine Mobility Assessed: Yes TMJ Mobility Assessed: Yes Dentition: Good Dentition - Neurological Assessment Level of Consciousness: Awake Hx Seizures: No Numbness or tingling in extremities: No - Anesthesia Plan Anesthesia Risk discussed: Yes Anesthesia Plan: Verified ASA Class: III Anesthesia Type: General [facility] History I have reviewed the patient's past medical history: Yes Medical History: Reports:: Diabetes Mellitus Type 2, Gall Bladder Disease, Hypertension, Kidney Stones, MRSA Denies:: Cancer, Diabetes Mellitus Type 1, Internal Pacemaker, Lung Disease, Seizures *Have you ever received a pneumonia vaccine?: Yes *Have you received a flu vaccine this season?: No Anesthesia experience/problems:: None Laterality Cases: Right: Arthroscopy Shoulder Other Surgeries: Yes: No Previous Surgery, Appendectomy, Colonoscopy, Colon Resection, Other. No: Pacemaker Amputation: No Fractures: No - *Social History Smoking Status: Never smoker Alcohol Intake: never Substance Use Type: denies use *Occupational Status:: employed Housing: house Household Members: spouse *Travel in the last 8 weeks: None Family Hx:: No significant family history
--- NOTE | 2021-06-22 11:01 | HMH.ANESI ---
[facility] Anesthesia Record Part I Intake, IV Amount: 500 Estimated blood loss (mL): 0 Urine output (mL): 0 Blood Pressure: 94/56 SaO2: 92 Pulse Rate: 99 Respiratory Rate: 16 Temperature: 98.6 F Patient is:: Drowsy, Stable Stable to PACU at:: 11:00
--- NOTE | 2021-06-22 11:37 | HMH.OPNOTE ---
Date of procedure: 06/22/21 Pre-op Diagnosis:: 3 mm right distal ureteral stone Post-op Diagnosis:: 3 mm right distal ureteral stone, ureteral stenosis Procedure performed:: Cystoscopy with dilation of the distal ureter, right ureteroscopy and stone extraction Surgeon:: Binh Alvarez MD DEPUTY REGISTER OF DEEDS:: German Stoddard Anesthesia: MAC Estimated blood loss (mL): 0 Clinical Note:: 46-year-old white male with recent right renal colic noted to have a 3 mm stone in the right distal ureter. He wishes to proceed with surgical management so he can get back to work. Operative findings:: The distal right ureter was stenotic and was dilated. The ureteroscope then passed into the distal ureter and the stone was grasped and removed without difficulty. Operative note:: Patient taken to the operating room after informed consent was obtained. Placed on the operating table in the supine position and general anesthesia administered. Preoperative antibiotics administered and sequential compression devices placed. He was then placed into the dorsal lithotomy position and prepped and draped in the standard surgical fashion. The 22 Faroese cystoscope passed into the urethra and into the bladder without difficulty. The bladder was examined in a systematic fashion and no abnormalities were noted. The ureteral orifices in their normal anatomic position. A guidewire was passed into the right ureteral orifice and there was a little bit of resistance in the distal ureter but we were able to manage the wire by the stone and into the right renal pelvis. The cystoscope removed and the ureteroscope then passed into the bladder but due to some ureteral narrowing we could not pass the scope into the right ureteral orifice so the ureteroscope was removed and the 4 x 15 mm UroMax balloon dilator passed over the guidewire and the right distal ureter dilated to 12 francesco for 3 minutes. The balloon then deflated and removed. The semirigid ureteroscope was passed back into the bladder and passed into the right ureter now without difficulty. Scope was passed up to the stone which is about 3 cm above the UVJ. A 1.9 Faroese stone basket was passed through the scope and the stone engaged and removed without difficulty. The ureteroscope was passed again into the right ureter to make sure there is no evidence of any further stones and no other stones were noted. Visualization of the ureteral orifice showed good efflux of urine from the right ureter afterwards and no stent was deemed necessary. The scope removed and Urojet placed into the urethra. The patient tolerated procedure well no complications. Condition: stable Disposition: PACU Specimens:: Ureteral stone Complications:: None
[2021-06-22 11:46] LABS: POC Glucose,Bedside 167 (70-110)
--- NOTE | 2021-06-22 13:59 | HMH.ANESII ---
[facility] Anesthesia Record Part II Discharge Time: 11:30 Destination: Surgical Day Care (OP Surgery) PACU nurse assessment reviewed?: Yes Patient Condition:: Good Anesthesia Complications:: None Swallowing reflex intact?: Yes Cyanosis?: No Blood Pressure: 141/79 Pulse Rate: 92 Temperature: 98.1 F Mental Status: Alert & Oriented Pain level:: 0 Nausea and/or vomitting:: None Intake, IV Amount: 0
[2021-07-27 21:04] LABS: Ca oxalate dihydrate 30; Size 4X3
[2022-02-28 10:56] LABS: POC Glucose,Bedside 171 (70-110)
== END 2021-06-22 12:01 | disposition home or self-care (01) ==
LOC: OR 08:49
PROVIDERS: PCP Family Medicine; Visit Provider Urology
PROC: (CPT 52352; principal; 2021-06-22 10:30)
DX: N20.1 Calculus of ureter (principal); E11.9 Type 2 diabetes mellitus without complications; I10 Essential (primary) hypertension; Z86.14 Personal history of Methicillin resistant Staphylococcus aureus infection; Z79.84 Long term (current) use of oral hypoglycemic drugs
CPT/HCPCS: 52352; 74018; 76000; 82370; 82962; 96374; J2405

== ENCOUNTER 2021-09-22 14:12 | Emergency (ER) | payer BC, SELFPAY ==
--- NOTE | 2021-09-22 14:52 | XR_ITS ---
PROCEDURE INFORMATION: Exam: XR Right Hand Exam date and time: 09/22/2021 3:02 PM Age: 46 years old Clinical indication: Injury or trauma; Other: Crushed; Crushing; Hand; Right; Additional info: Pain TECHNIQUE: Imaging protocol: XR Right hand. Views: 3 or more views. COMPARISON: No relevant prior exams. FINDINGS: Bones/joints: Normal. The joint spaces are maintained. No fractures or dislocations. Soft tissues: Normal. No swelling or abnormal density. IMPRESSION: Unremarkable hand.
[2021-09-22 15:18] VITALS: BP 142/86; PULSE 97; RESP 16; TEMP 36.8; O2SAT 99; BMI 28.5
--- NOTE | 2021-09-22 16:07 | HMH.EDUTC ---
[facility] Dis[place] Clinical Impression: Crushing injury of right thumb Qualifiers: Encounter type: initial encounter Qualified Code(s): S67.01XA - Crushing injury of right thumb, initial encounter Disposition: Home, Self-Care Condition on Discharge: Good Instructions: DI for Crush Injury, DI for Ulnar Collateral Ligament Sprain of Thumb Additional Instructions: Rest the extremity, Elevate the extremity as tolerated while you are resting. Take ibuprofen for pain. I sent in a prescription to your pharmacy. Follow up with Dr. Rogers (orthopedics). Sometimes there can be fractures that don't show up well on the first set of x-rays. So, you should follow up if you continue to have symptoms. I put in a referral but you need to call his office and schedule an appointment. Follow up with your regular doctor. GO TO THE ER FOR ANY WORSENING SYMPTOMS Prescriptions: Ibuprofen [Ibuprofen 800mg Tablet] 800 mg PO Q8HP PRN #30 tab PRN Reason: Moderate Pain Transmission Status: Received by [id number] Referrals: Sal Bullock MD [Primary Care Provider] - Fahad Rogers MD [Staff Physician] - Time of Disposition: 16:43 Medical Decision Making - Medical Records Medical records reviewed: No: I reviewed the patient's medical records. - Trevor Inquiry Pt receiving controlled substance: No Vital Signs: 09/22/21 15:18 09/22/21 16:44 Temperature 98.2 F 98.2 F Temperature Source Oral Pulse Rate 97 H Pulse Rate [Left] 97 H Respiratory Rate 16 16 Blood Pressure 142/86 H Blood Pressure [Right Arm] 142/86 H Blood Pressure Mean [Right Arm] 104 02 Sat by Pulse Oximetry 99 - Radiology Data #1 Image(s): Hand Image Reviewed: Yes I reviewed the patient's radiology image, Yes I have reviewed radiologist's interpretation Preliminary Findings: Normal/NAD, No Fracture Seen PROCEDURE INFORMATION: Exam: XR Right Hand Exam date and time: 09/22/2021 3:02 PM Age: 46 years old Clinical indication: Injury or trauma; Other: Crushed; Crushing; Hand; Right; Additional info: Pain TECHNIQUE: Imaging protocol: XR Right hand. Views: 3 or more views. COMPARISON: No relevant prior exams. FINDINGS: Bones/joints: Normal. The joint spaces are maintained. No fractures or dislocations. Soft tissues: Normal. No swelling or abnormal density. IMPRESSION: Unremarkable hand. [facility] HPI - General Stated complaint: AO 09/22 rt thumb injury Time Seen by Provider: 09/22/21 16:07 Mode of Arrival: Ambulatory Source of Information: Patient Limitations: No Limitations Description of Symptoms (Recalled from Triage Doc. by RN): pt c/o a crush injury to his R thumb from landscaping blocks. ongoing x1wk HEENT Symptoms (Recalled from RN notes): No Resp Symptoms (Recalled from RN notes): No Skin Symptoms (Recalled from RN notes): No MS Symptoms (Recalled from RN notes): Yes Functional Status (Recalled from RN notes): wnl - History of Present Illness Provider Complaint: He states that 1 week ago, he was working with some paving blocks at home when he dropped one and it came down on the base of his thumb. Since then, he has had - Related Data Home Medications Medication Instructions Recorded Confirmed metformin 1,000 mg tablet 1,000 mg PO BID 11/17/17 06/22/21 Tamsulosin HCl [Flomax 0.4mg 0.4 mg PO HS 06/22/21 06/22/21 capsule] Previous Rx's Medication Instructions Recorded Ketorolac Tromethamine [Toradol 10 mg PO Q6HP PRN #8 tab MDD 06/19/21 10mg tablet] 40mg/day Ibuprofen [Ibuprofen 800mg 800 mg PO Q8HP PRN #30 tab 09/22/21 Tablet] Allergies Allergy/AdvReac Type Severity Reaction Status Date / Time No Known Allergies Allergy Verified 06/21/21 14:16 - Worker's Comp Is this a Worker's Comp case?: No [facility] History - Hepatitis A Screen Drug use history?: No High risk sexual behavior
[2021-09-22 16:44] VITALS: BP 142/86; PULSE 97; RESP 16; TEMP 36.8
== END 2021-09-22 17:01 | disposition home or self-care (01) ==
PROVIDERS: Emergency Provider Nurse Practitioner Family; PCP Family Medicine
DX: S67.01XA Crushing injury of right thumb, initial encounter (principal); I10 Essential (primary) hypertension; E11.9 Type 2 diabetes mellitus without complications; N20.0 Calculus of kidney; K82.9 Disease of gallbladder, unspecified; Z79.1 Long term (current) use of non-steroidal anti-inflammatories (NSAID); Z79.84 Long term (current) use of oral hypoglycemic drugs; Z79.899 Other long term (current) drug therapy; Z86.14 Personal history of Methicillin resistant Staphylococcus aureus infection; Z88.3 Allergy status to other anti-infective agents; W23.0XXA Caught, crushed, jammed, or pinched between moving objects, initial encounter
CPT/HCPCS: 29130; 73130; 99213; G0463

== ENCOUNTER → 2022-02-01 15:09 | Outpatient (CLI) | payer BC, SELFPAY ==
--- NOTE | 2022-02-01 15:12 | XR_ITS ---
PROCEDURE INFORMATION: Exam: XR Right Hip Exam date and time: 02/01/2022 3:14 PM Age: 46 years old Clinical indication: Hip pain; Right hip; Additional info: Right hip pain TECHNIQUE: Imaging protocol: Radiologic exam of the Right hip. Views: 2 or 3 views hip with pelvis when performed. COMPARISON: CT ABDOMEN PELVIS WO CON 06/19/2021 6:37 AM FINDINGS: Tubes, catheters and devices: There are surgical clips projected over the pelvis. Bones/joints: There is moderate articular cartilage loss in the right hip with marginal osteophytes. There is a bone island in right femoral head. There is no acute fracture. Soft tissues: Unremarkable. IMPRESSION: Moderate osteoarthritis.
== END ==
PROVIDERS: PCP Family Medicine; Visit Provider Orthopaedic Surgery
DX: M25.551 Pain in right hip (principal)
CPT/HCPCS: 73502

== ENCOUNTER → 2022-03-27 10:19 | Outpatient (CLI) | payer BC, SELFPAY ==
[2022-03-27 12:03] LABS: Adenovirus,PCR Not Detected (NotDetected); Bordetella Pertussis Not Detected (NotDetected); Chlamydophila Pneumoniae, PCR Not Detected (NotDetected); Coronavirus 19, PCR Not Detected (NotDetected); Coronavirus 229E Not Detected (NotDetected); Coronavirus NL63 Not Detected (NotDetected); Coronavirus OC43 Not Detected (NotDetected); Coronovirus HKU1,PCR Not Detected (NotDetected); Human Metapneumovirus Not Detected (NotDetected); Influenza A, PCR Not Detected (NotDetected); Influenza AH1, 2009 Not Detected (NotDetected); Influenza AH1, PCR Not Detected (NotDetected); Influenza B, PCR Not Detected (NotDetected); Mycoplasma Pneumoniae, PCR Not Detected (NotDetected); Parainfluenza 1, PCR Not Detected (NotDetected); Parainfluenza 2, PCR Not Detected (NotDetected); Parainfluenza 3, PCR Not Detected (NotDetected); Parainfluenza 4, PCR Not Detected (NotDetected); Respiratory Syncytial Virus Not Detected (NotDetected); Rhinovirus/Enterovirus Not Detected (NotDetected)
[2022-03-27 15:35] LABS: Influenza AH3,PCR Detected (NotDetected)
== END ==
PROVIDERS: PCP Family Medicine; Visit Provider Nurse Practitioner Family
DX: J09.X2 Influenza due to identified novel influenza A virus with other respiratory manifestations (principal); R50.9 Fever, unspecified
CPT/HCPCS: 87581; 87632; 87798; C9803; U0003; U0005

== ENCOUNTER → 2022-05-07 16:25 | Outpatient (CLI) | payer BC, SELFPAY ==
[2022-05-07 18:52] LABS: Basophils % 0.6 % (0.1-2.0); Eosinophils # 0.2 K/mm3 (0.0-0.4); Eosinophils % 3.3 % (0.1-12.0); Hematocrit 48.2 % (42.0-52.0); Hemoglobin 16.2 g/dL (14.1-18.0); Lymphocytes # 2.6 K/mm3 (0.7-4.5); Lymphocytes % 37.6 % (10-50); Mean Corpuscular HGB Conc 33.6 g/dL (31.8-35.4); Mean Corpuscular Hemoglobin 28.8 pg (27.0-31.2); Mean Corpuscular Volume 85.7 fl (80-94); Mean Platelet Volume 9.6 fl (7.4-10.4); Monocytes # 0.6 K/mm3 (0.1-1.0); Neutrophils # 3.5 K/mm3 (1.8-7.8); Neutrophils % 50.5 % (37.0-80.0); Platelet Count 224 K/mm3 (142-424); Red Blood Count 5.63 M/mm3 (4.60-6.20); Red Cell Distribution Width 13.5 % (11.5-17.5); White Blood Count 6.9 K/mm3 (4.8-10.8)
[2022-05-07 18:58] LABS: Alanine Aminotransferase 35 U/L (12-78); Albumin Level 4.6 g/dl (3.5-5.0); Albumin/Globulin Ratio 1.5 (1.1-1.8); Alkaline Phosphatase 143 U/L (38-126); Aspartate Amino Transferase 39 U/L (17-59); Bilirubin,Total 0.9 mg/dl (0.2-1.3); Blood Urea Nitrogen 20 mg/dl (9-20); Calcium 10.1 mg/dl (8.4-10.2); Carbon Dioxide 26 mmol/L (22.0-30.0); Chloride 103 mmol/L (98-107); Chol/HDL Ratio 3.9 (1-3.5); Cholesterol 227 mg/dl (140-200); Estimated Glomerular Filt Rate 90 ml/min (>60); GFR (African American) 109 ML/MIN (>60); Glucose 152 mg/dl (74-100); HDL Cholesterol 58 mg/dl (40-60); Sodium 138 mmol/L (136-145); Total Protein,Serum 7.6 g/dl (6.3-8.2); Triglycerides 351 mg/dl (30-150); VLDL Cholesterol 70 mg/dL (0-40)
[2022-05-07 19:08] LABS: Direct LDL Cholesterol 118.38 mg/dL (100-129)
[2022-05-07 19:26] LABS: Hemoglobin A1C 8.3 % (4.0-6.0)
[2022-05-07 19:27] LABS: Thyroid Stimulating Hormone 0.52 uIU/mL (0.465-4.68)
== END ==
PROVIDERS: PCP Family Medicine; Visit Provider Family Medicine
DX: E11.9 Type 2 diabetes mellitus without complications (principal); R53.83 Other fatigue; Z79.84 Long term (current) use of oral hypoglycemic drugs
CPT/HCPCS: 80053; 80061; 83036; 84443; 85025

== ENCOUNTER → 2022-05-21 15:22 | Outpatient (POV) | payer BC, SELFPAY | PROVIDERS: Visit Provider Dermatology | DX: Z00.00 Encounter for general adult medical examination without abnormal findings (principal) ==

== ENCOUNTER → 2022-06-25 16:12 | Outpatient (CLI) | payer BC, SELFPAY ==
[2022-06-25 19:05] LABS: Albumin Level 4.5 g/dl (3.5-5.0); Anion Gap 13.6 mEq/L (5-15); Blood Urea Nitrogen 18 mg/dl (9-20); Calcium 8.9 mg/dl (8.4-10.2); Carbon Dioxide 28 mmol/L (22.0-30.0); Chloride 102 mmol/L (98-107); Estimated Glomerular Filt Rate 90 ml/min (>60); GFR (African American) 109 ML/MIN (>60); Glucose 107 mg/dl (74-100); Phosphorous 4.2 mg/dl (2.5-4.5); Potassium 4.6 mmoL/L (3.5-5.1); Sodium 139 mmol/L (136-145); Uric Acid 4.3 mg/dl (3.5-8.5)
[2022-06-25 19:14] LABS: Intact Parathyroid Hormone 61.5 pg/mL (7.5-53.5)
== END ==
PROVIDERS: PCP Family Medicine; Visit Provider Nurse Practitioner Family
DX: Z87.442 Personal history of urinary calculi (principal)
CPT/HCPCS: 36415; 80069; 83970; 84550

== ENCOUNTER → 2022-07-05 13:46 | Outpatient (CLI) | payer BC, SELFPAY | PROVIDERS: PCP Nurse Practitioner Family; Visit Provider Nurse Practitioner Family | DX: N41.0 Acute prostatitis (principal) | CPT/HCPCS: 87086 ==

== ENCOUNTER → 2022-07-09 23:00 | Outpatient (CLI) | payer BC, SELFPAY ==
[2022-07-09 22:25] LABS: Prostate Specific Ag Screen 2.9 ng/ml (0.0-4.0)
== END ==
PROVIDERS: PCP Family Medicine; Visit Provider Family Medicine
DX: Z12.5 Encounter for screening for malignant neoplasm of prostate (principal); N39.0 Urinary tract infection, site not specified
CPT/HCPCS: 87086; G0103

== ENCOUNTER → 2023-01-02 23:36 | Outpatient (CLI) | payer BC, SELFPAY ==
[2023-01-02 18:45] LABS: Hemoglobin A1C 7.8 % (4.0-6.0)
== END ==
PROVIDERS: PCP Family Medicine; Visit Provider Family Medicine
DX: E11.9 Type 2 diabetes mellitus without complications (principal)
CPT/HCPCS: 83036

== ENCOUNTER 2023-08-07 14:15 | Outpatient (CLI) | payer BC, SELFPAY ==
--- NOTE | 2023-08-07 14:23 | CT_ITS ---
FINAL REPORT CLINICAL HISTORY: KIDNEY STONE COMPARISON: 06/19/2021 FINDINGS: Axial CT images of the abdomen and pelvis were obtained without intravenous contrast. Coronal and sagittal reformatted images were also obtained.This study was performed with techniques to keep radiation doses as low as reasonably achievable (ALARA). Individualized dose reduction techniques using automated exposure control or adjustment of mA and/or kV according to the patient's size were employed. Abdomen: A calcified granuloma is present in the right lung base. There are several small nonobstructing calcified renal stones bilaterally, the largest on the left measuring 5 mm. No evidence of hydronephrosis or hydroureter is seen on today's examination. There is a low density in the posterior aspect of the left kidney that measures 6.8 cm in size, likely a renal cyst. This measured 6.2 cm in 2021. Multiple gallstones are present in the gallbladder. The liver, spleen and pancreas have an unremarkable, unenhanced appearance. No mass or adenopathy is seen. No inflammatory process is identified. Pelvis: Images of the pelvis reveal no evidence of ureteral dilation or ureteral stone.No mass or abnormal fluid collection is identified. There are postoperative changes at the rectosigmoid junction. The appendix is not well-visualized. IMPRESSION: Several small bilateral nonobstructing renal stones as described, with no evidence of hydronephrosis, hydroureter, or ureteral stone. 6.8 cm low-density in the posterior aspect of the left kidney likely a renal cyst. This was seen on the prior exam of 2021, and measured 6.2 cm at that time. Reviewed, Interpreted and Dictated by Ricky Patel III, MD Transcribed by Veronica Hernandez Authenticated and [facility]
== END 2023-08-07 23:59 ==
LOC: RAD 14:16
PROVIDERS: PCP Family Medicine; Visit Provider Urology
DX: N20.0 Calculus of kidney (principal)
CPT/HCPCS: 74176

== ENCOUNTER 2023-08-22 11:08 | Day surgery (SDC) | payer BC, SELFPAY ==
[2023-08-21 08:55] VITALS: BMI 27.6
[2023-08-22] VITALS (7 sets, daily range): BP systolic 95–149; BP diastolic 59–121; PULSE 82–96; RESP 18–19; TEMP 36.2; O2SAT 93–100
[2023-08-22] MEDS: LACTATED RINGERS 1000ML 1,000 ML 25 ML IV (11:38)
[2023-08-22] MEDS: DEXTROSE 5%-LACTATED RINGERS 1,000 ML 25 ML IV (11:49)
[2023-08-22 11:57] LABS: POC Glucose,Bedside 51 (70-110)
--- NOTE | 2023-08-22 12:13 | HMH.SCOPE ---
Procedure: Date: 08/22/23 Patient Date of :: 1975 Procedure Performed:: Total colonoscopy to terminal ileum with polypectomy using cold snare Indications:: Patient is a pleasant 48-year-old male. He had severe complicated diverticulitis with pneumoperitoneum requiring Hidalgo's procedure with end colostomy in 2012. Several months later in anticipation of colostomy takedown colonoscopy was performed which revealed 6 tubular adenomas. He did have his colostomy reversed and underwent a follow-up colonoscopy in 2015 due to the prior history of multiple adenomatous polyps and he had 4 tubular adenomas at that time. Repeat colonoscopy performed 12/23/2017 revealed 2 tubular adenomas. 3 years later he had a colonoscopy on 08/16/2020 which revealed 3 tubular adenomas. Performing Provider:: Ricky Miller MD Referring Provider:: Gaurav Ervin MD Sedation:: MAC sedation Procedure:: Patient history was obtained and appropriate physical examination was performed. Patient's medications and allergies were reviewed. Informed consent was obtained after explaining the benefits, alternatives, and risks of the procedure including, but not limited to, bleeding, perforation, missed lesions, and adverse reaction to anesthesia medications. Patient was transported to endoscopy procedure room. Patient was connected to monitoring devices. Throughout the procedure the patient's blood pressure, pulse, and oxygen saturations were monitored continuously. Patient identification and planned procedure were verified by the staff. Patient was positioned in lateral decubitus position. Digital anorectal exam was performed. Variable stiffness Olympus colonoscope was inserted and advanced under direct visualization to the cecum. Adequacy of the colonic preparation was noted. The colonoscope was advanced a short distance into the terminal ileum. The colonoscope was then slowly withdrawn while carefully examining the color, texture, anatomy, and integrity of the mucosoa circumferentially. Within the rectum retroflexion was performed. Colonoscope was then withdrawn. . I did the ascending colon just distal to the ileocecal valve there was a small polyp removed with cold cutting snare. In the descending colon there was a small polyp removed with cold cutting snare. He had some sigmoid diverticulosis. Anastomosis was identified at approximately 18 cm from the anal verge. He had mild prolapsing internal hemorrhoids. Findings:: Polyps x 2 as noted above Mild sigmoid diverticulosis Anastomosis at approximately 18 cm Mild prolapsing internal hemorrhoids Recommendations:: Follow-up colonoscopy pending pathology. Likely 3-5 years Complications:: None immediately apparent Estimated blood obtained (mL): 1 Colonoscopy Component Colonoscopy Component Was a colonoscopy performed during today's procedure?: Yes Recommended follow up colonoscopy of at least 10 years?: No If no, follow up colonoscopy recommended in ___ years?: 3-5 Reason for not recommending >/= 10 yr follow-up interval?: Polyps
--- NOTE | 2023-08-22 12:24 | SUR.PREOP ---
1220-BLOOD SUGAR 115
[2023-08-22 12:29] LABS: POC Glucose,Bedside 115 (70-110)
--- NOTE | 2023-08-22 12:41 | P.PNANES_ITS ---
[facility] Disclaimer: The information contained in this section may have been updated after the patient was seen, as this information can be updated by other users. 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 current occupational exposures/hazards: Yes caffeine: No [facility] Anesthesia Checklist Patient Identification Patient Identification: Arm Band Structural Data Admitted From: Home Planned Operative Procedure/s: Colonoscopy Consent for Planned Operative Procedure(s) Verified: Yes Verified Documents: Surgical Consent and History and Physical NPO Status Verified Time NPO: 00:00 Additional verifications Anesthesia Reactions: No Hx Blood Transfusions: No Blood Transfusion Reaction: No Airway Assessment Mallampati Score:: Class II C-Spine Mobility Assessed: Yes TMJ Mobility Assessed: Yes Dentition: Good Dentition Neurological Assessment Level of Consciousness: Awake and Alert Anesthesia Plan Anesthesia Risk discussed: Yes Anesthesia Plan: Verified ASA Class: II Anesthesia Type: MAC
[2023-08-22 13:13] LABS: POC Glucose,Bedside 161 (70-110)
== END 2023-08-22 13:25 | disposition home or self-care (01) ==
PROVIDERS: PCP Family Medicine; Visit Provider Surgery
PROC: 0DJD8ZZ Inspection of Lower Intestinal Tract, Via Natural or Artificial Opening Endoscopic (ICD-10-PCS; CPT 45385; principal; 2023-08-22 12:30)
DX: Z12.11 Encounter for screening for malignant neoplasm of colon (principal); Z86.010 Personal history of colon polyps; E11.9 Type 2 diabetes mellitus without complications; D12.2 Benign neoplasm of ascending colon; D12.4 Benign neoplasm of descending colon; K64.8 Other hemorrhoids; K57.92 Diverticulitis of intestine, part unspecified, without perforation or abscess without bleeding; K63.89 Other specified diseases of intestine
CPT/HCPCS: 45385; 82962; J2704

== ENCOUNTER 2024-01-18 10:25 | Emergency (ER) | payer BC, SELFPAY ==
[2024-01-18 10:45] VITALS: BP 126/95; PULSE 85; RESP 19; TEMP 36.8; O2SAT 100; BMI 28.0
[2024-01-18 11:08] LABS: Apearance,Urine Clear (Clear); Bilirubin,Urine Negative (Negative); Blood, Urine Negative (Negative); Color,Urine Yellow (Yellow); Glucose,Urine (UA) >=1000 (Negative); Ketones,Urine TRACE (Negative); Protein,Urine Negative (Negative); UTC Leukocyte Esterase,Urine Negative (Negative); UTC Nitrate,Urine Negative (Negative); Urobilinogen,Urine 0.2 EU/dl (0.2)
--- NOTE | 2024-01-18 11:11 | EXP.UTC ---
Discharge Plan Disposition Patient Disposition: Home, Self-Care Condition: Good Prescriptions Prescriptions: No Action tamsulosin [Flomax] 0.4 mg capsule 0.4 mg PO DAILY Qty: 90 3RF (DME) FreeStyle Nelda 14 Day Sensor Kit See Rx Instructions .Route Qty: 1 11RF Rx Instructions: As directed (DME) FreeStyle Nelda 14 Day [place] Misc See Rx Instructions .Route Qty: 1 0RF Rx Instructions: As directed dicyclomine 20 mg tablet 20 mg PO DAILY Rx Instructions: TAKE 1 TABLET BY MOUTH TWICE DAILY NEEDED FOR ABDOMINAL PAIN Jardiance 25 mg tablet 25 mg PO DAILY Rx Instructions: Take 1 tablet by mouth once daily Referrals Follow up/Referrals: Gaurav Ervin MD [Primary Care Provider] - See instructions Activity Restrictions/Add. Instructions Additional Instructions/Restrictions: Go Straight to [facility] ED as we discussed Furhter care per [facility] Clinical Impressions Clinical Impression: Flank pain Instructions Patient Instructions: DI for Kidney Stones Print Language Print Language: Puerto Rican Discharge ED Provider: Carla Aponte [facility] [place] General Stated complaint: abd/back pain Mode of Arrival: Ambulatory Source of Information: Patient Limitations: No Limitations Time Seen by Provider: 01/18/24 11:11 Description of Symptoms (Recalled from Triage Doc. by RN): PATIENT C/O PAIN TO BILATERAL FLANK AREA FROM KIDNEY STONES THAT STARTED 01/07/24 AND HAS GRADUALLY GOTTEN WORSE. PATIENT DENIES ANY DIFFICULTY URINATING, BUT STATES HE DOES HAVE OCCASIONAL PAIN TO GENITAL AREA HEENT Symptoms (Recalled from RN notes): No Resp Symptoms (Recalled from RN notes): No Skin Symptoms (Recalled from RN notes): No MS Symptoms (Recalled from RN notes): No Functional Status (Recalled from RN notes): WNL History of Present Illness Provider Complaint: Patient states that he sees urology out of [place] and has a clinic in [place] States that they told him that he has several Kidney stones some passable and some not States that he has been having flank pain on and off since 01/06 that has got worse over the last couple of days and worried one of the stones may be moving or lodged so today he came in to get checked Denies fever, denies chills, states he hasnt had any issues urinating yet but has been getting more painful Related Data Home Medications ?Medication ?Instructions ?Recorded ?Confirmed dicyclomine 20 mg tablet 20 mg PO DAILY 01/18/24 01/18/24 empagliflozin 25 mg tablet 25 mg PO DAILY 01/18/24 01/18/24 (Jardiance) Previous Rx's ?Medication ?Instructions ?Recorded tamsulosin 0.4 mg capsule (Flomax) 0.4 mg PO DAILY #90 caps 07/09/22 flash glucose scanning reader #1 ea 01/02/23 (FreeStyle Nelda 14 Day [place]) flash glucose sensor (FreeStyle #1 ea 01/02/23 Nelda 14 Day Sensor kit) Allergies Allergy/AdvReac Type Severity Reaction Status Date / Time No Known Allergies Allergy Verified 10/03/23 10:05 Worker's Comp Is this a Worker's Comp case?: No [facility] Disclaimer: The information contained in this section may have been updated after the patient was seen, as this information can be updated by other users. Medical History (Updated 01/18/24 @ 11:19 by Carla Aponte APRN) Kidney stone Diabetes mellitus, type 2 Trochanteric bursitis of right hip Crushing injury of right thumb Renal colic on right side Calculus of kidney Ankle sprain Knee sprain Bacteriuria Flank pain, acute Surgical History (Updated 01/18/24 @ 11:05 by Ernestine Garcia RN) History of appendectomy Family History Other No significant family history Social History Smoking Status: Never smoker second hand exposure: No alcohol intake: never substance use type: denies use current occupational status: employed Travel in the last 8 weeks: None household members: spouse housing: house 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 current occupational exposures/hazards: Yes caffeine: No ROS Obtained: Yes All systems reviewed & no additional complaints except as documented and Yes Systems reviewed as appropriate & no additional complaints except as documented Constitutional Constitutional: Reports system reviewed and no additional complaints, except as documented, Reports as per HPI, Denies body ache, Denies chills, Denies fever(s) and Denies headache(s) ENT Ears, Nose, Mouth, and Throat: Reports system reviewed and no additional complaints, except as documented, Reports as per HPI and Denies headache(s) Cardiovascular Cardiovascular: Reports system reviewed and no additional complaints, except as documented and Reports as per HPI Respiratory Respiratory: Reports system reviewed and no additional complaints, except as documented and Reports as per HPI Gastrointestinal Gastrointestingal: Reports system reviewed and no additional complaints, except as documented and as per HPI; Denies abdominal pain, nausea or vomiting Genitourinary Male Genitourinary: Reports system reviewed and no additional complaints, except as documented, Reports as per HPI, Reports flank pain (bilateral), Denies hematuria and Reports other (pain with urination ) Neurologic Neurologic: Denies headache(s) Physical Exam General General appearance: alert and in no apparent distress ENT ENT exam: Present mucous membranes moist Respiratory Respiratory exam: Present normal lung sounds bilaterally; Absent respiratory distress or wheezes Cardiovascular Cardiovascular exam: Present regular rate, normal rhythm and normal heart sounds Abdominal Exam Abdominal exam: Present soft and normal bowel sounds; Absent distention or tenderness Back Exam Back 1 view image: 1. reports achy like pain that has got worse since 01/06 was told he had Kidney stones by Urologist denies radiation of pain Neurological Exam Neurological exam: Present alert, oriented X3 and normal gait Medical Decision Making Trevor Inquiry Pt receiving controlled substance: No Trevor was queried for this patient: No Vital Signs: 01/18/24 10:45 Temperature 98.2 F Temperature Source Oral Pulse Rate [Left Brachial] 85 Respiratory Rate 19 Blood Pressure [Left Arm] 126/95 H Blood Pressure Mean [Left Arm] 105 Blood Pressure Source [Left Arm] Automatic Cuff Blood Pressure Position [Left Arm] Sitting 02 Sat by Pulse Oximetry 100 Oxygen Delivery Method Room Air Lab Data Lab results reviewed: Yes I reviewed the patient's lab results. Lab Results 01/18/24 11:07: Urine Color Yellow, Urine Appearance Clear, Urine pH 6.0, Ur Specific [place] 1.020, Urine Protein Negative, Urine Glucose (UA) >=1000, Urine Ketones Trace, Urine Blood Negative, Urine Nitrate Negative, Urine Bilirubin Negative, Urine Urobilinogen 0.2, Ur Leukocyte Esterase Negative Medical Decision Narrative: No blood or nitrates noted in urine, + for glucose and trace Ketones, patient reports sees Urologist Dr Edwar Vigil associated with [facility] Discussed with patient due to patient wanting CT to see if stone was moving or lodged due to patient informed he had Kidney stones some that was passable and some that was not Discussed with patient about transfer to the ED for furhter work up and evaluation and he declined transfer to the ED at [facility] advised he would go to [facility] since that is where his urologist is associated with incase of possible lodged stone agreeable with choice patient will be dc'd from the [facility] and go straight to [facility] for further evaluation and examination
[2024-01-18 11:23] VITALS: BP 126/95; PULSE 85; RESP 19; TEMP 36.8; O2SAT 100
== END 2024-01-18 11:26 | disposition home or self-care (01) ==
PROVIDERS: Emergency Provider Nurse Practitioner; PCP Family Medicine
DX: R10.30 Lower abdominal pain, unspecified (principal); M54.59 Other low back pain; E11.9 Type 2 diabetes mellitus without complications; Z79.84 Long term (current) use of oral hypoglycemic drugs; Z87.442 Personal history of urinary calculi
CPT/HCPCS: 81003; 87086; 99212; 99214; G0463

== ENCOUNTER 2024-01-22 21:00 | Emergency (ER) | payer BC, SELFPAY ==
[2024-01-22 21:01] VITALS: BP 151/98; PULSE 81; RESP 20; TEMP 36.9; O2SAT 98; BMI 27.5
--- NOTE | 2024-01-22 21:27 | CT_ITS ---
PROCEDURE INFORMATION: Exam: CT Abdomen And Pelvis Without Contrast Exam date and time: 01/22/2024 9:38 PM Age: 48 years old Clinical indication: Abdominal pain; Flank; Right; Additional info: Right flank pain, h/o stones TECHNIQUE: Imaging protocol: Computed tomography of the abdomen and pelvis without contrast. Radiation optimization: All CT scans at this facility use at least one of these dose optimization techniques: automated exposure control; mA and/or kV adjustment per patient size (includes targeted exams where dose is matched to clinical indication); or iterative reconstruction. COMPARISON: CT ABDOMEN PELVIS WO CON 08/07/2023 2:22 PM FINDINGS: Tubes, catheters and devices: Surgical clips in the left abdomen again noted and unchanged. Lungs: Calcified granuloma right lung base. Esophagus: Distal esophagus appears normal. Stomach appears normal. Liver: Noncontrast enhanced liver appears normal. Gallbladder and biliary ducts: Dependent gallstone. Pancreas: Pancreas appears normal. Spleen: Calcified splenic granulomas. Adrenal glands: Adrenal glands appear normal. Kidneys and ureters: Small 2-3 mm nonobstructing right renal stones. Exophytic left renal cyst. Small 4-5 mm nonobstructing left renal stones. No hydronephrosis. Stomach and bowel: Nonspecific bowel gas pattern. Surgical clips associated with the rectosigmoid colon. Retained stool in the colon. Retained stool in the rectosigmoid colon. Appendix: No secondary signs appendicitis. Intraperitoneal space: Unremarkable. No free air. No significant fluid collection. Vasculature: Unremarkable. No abdominal aortic aneurysm. Lymph nodes: No significant abdominal adenopathy. Urinary bladder: Bladder contour is normal. Reproductive: Unremarkable as visualized. Bones/joints: Unremarkable. No acute fracture. Soft tissues: Unremarkable. IMPRESSION: 1. No free air or fluid or adenopathy. 2. No hydronephrosis or urinary tract calculi. 3. Bilateral nonobstructing renal stones visualized. 4. Nonspecific bowel gas pattern. No secondary signs of appendicitis. 5. Retained stool in the colon, and rectosigmoid colon. 6. Other (less critical/noncritical/incidental) findings as above; please refer to the body of report for further details. COMMENTS: Consistent with the [employer]'s Incidental Findings Committee white paper (J Am Yyaa Radiol 2018): Any incidental renal lesion less than 1 cm or classified as too small to characterize, or any incidental cystic renal lesion characterized as simple-appearing, is likely benign. No follow-up imaging is recommended for these lesions per consensus recommendations based on imaging criteria.
--- NOTE | 2024-01-22 21:29 | HMH.EDGENADL ---
Discharge Plan Disposition Patient Disposition: Home, Self-Care Prescriptions Prescriptions: No Action tamsulosin [Flomax] 0.4 mg capsule 0.4 mg PO DAILY Qty: 90 3RF (DME) FreeStyle Nelda 14 Day Sensor Kit See Rx Instructions .Route Qty: 1 11RF Rx Instructions: As directed (DME) FreeStyle Nelda 14 Day [place] Misc See Rx Instructions .Route Qty: 1 0RF Rx Instructions: As directed dicyclomine 20 mg tablet 20 mg PO DAILY Rx Instructions: TAKE 1 TABLET BY MOUTH TWICE DAILY NEEDED FOR ABDOMINAL PAIN Jardiance 25 mg tablet 25 mg PO DAILY Rx Instructions: Take 1 tablet by mouth once daily Referrals Follow up/Referrals: Gaurav Ervin MD [Primary Care Provider] - See instructions Activity Restrictions/Add. Instructions Additional Instructions/Restrictions: Please follow-up with your primary care provider. Please return to the emergency department if you develop any new or worsening symptoms or become concerned for your health. Clinical Impressions Clinical Impression: Flank pain Instructions Patient Instructions: DI for Urinary Tract Infection (UTI), DI for Urinary Tract Infection in Children Print Language Print Language: Faroese Discharge ED Provider: Diego Eller General Adult HPI <Diego Eller MD - Last Filed: 01/22/24 22:59> General Chief complaint: Urogenital-Male Stated complaint: back pain, poss kidney stones Time Seen by Provider: 01/22/24 21:23 Mode of Arrival: Ambulatory Source of Information: Patient Limitations: No Limitations Description of Symptoms (Recalled from ER Triage Doc. by RN): 48 M presents from home with c/o bilateral flank pain, worse on the right after being diagnosed with several kidney stones 2 weeks ago. Patient saw Dr. Edwar Vigil with [facility] today and was waiting to have another CT scan. Patient reports pain, nausea, and dysuria. History of Present Illness HPI narrative: Patient is a 48-year-old male with a history of numerous kidney stones several requiring surgical intervention followed by urologist at [facility] presents today with worsening bilateral flank pain worse on the right. He has been told recently that had a 6 mm stone and his symptoms significantly worsened over the last few days. Has been attempting to get outpatient evaluation and workup but his symptoms worsened to the point where he had to come to the emergency department today. States this is very similar to kidney stone she has had in the past denies any fevers or chills denies any alternative symptoms. Related Data Home Medications ?Medication ?Instructions ?Recorded ?Confirmed dicyclomine 20 mg tablet 20 mg PO DAILY 01/18/24 01/18/24 empagliflozin 25 mg tablet 25 mg PO DAILY 01/18/24 01/18/24 (Jardiance) Previous Rx's ?Medication ?Instructions ?Recorded tamsulosin 0.4 mg capsule (Flomax) 0.4 mg PO DAILY #90 caps 07/09/22 flash glucose scanning reader #1 ea 01/02/23 (FreeStyle Nelda 14 Day [place]) flash glucose sensor (FreeStyle #1 ea 01/02/23 Nelda 14 Day Sensor kit) Allergies Allergy/AdvReac Type Severity Reaction Status Date / Time No Known Allergies Allergy Verified 10/03/23 10:05 [facility] <Diego Eller MD - Last Filed: 01/22/24 22:59> [facility] Disclaimer: The information contained in this section may have been updated after the patient was seen, as this information can be updated by other users. Medical History (Updated 01/22/24 @ 21:31 by Diego Eller MD) Kidney stone Diabetes mellitus, type 2 Trochanteric bursitis of right hip Crushing injury of right thumb Renal colic on right side Calculus of kidney Ankle sprain Knee sprain Bacteriuria Flank pain, acute Surgical History (Updated 01/18/24 @ 11:05 by Ernestine Garcia RN) History of appendectomy Family History Other No significant family history Social History Smoking Status: Never smoker second hand exposure: No alcohol intake: never substance use type: denies use current occupational status: employed Travel in the last 8 weeks: None household members: spouse housing: house 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 current occupational exposures/hazards: Yes caffeine: No <Diego Eller MD - Last Filed: 01/22/24 22:59> ROS Obtained: Yes All systems reviewed & no additional complaints except as documented Physical Exam <Diego Eller MD - Last Filed: 01/22/24 22:59> General General appearance: alert Respiratory Respiratory exam: Present normal lung sounds bilaterally Cardiovascular Cardiovascular exam: Present regular rate Back Exam Back exam: Absent CVA tenderness (R) or CVA tenderness (L) Neurological Exam Neurological exam: Present alert and oriented X3 Medical Decision Making <Diego Eller MD - Last Filed: 01/22/24 22:59> Trevor Inquiry Pt receiving controlled substance: No Vital Signs: 01/22/24 21:01 Temperature 98.5 F Temperature Source Oral Pulse Rate [Left] 81 Respiratory Rate 20 Blood Pressure [Right Arm] 151/98 H Blood Pressure Mean [Right Arm] 115 Blood Pressure Source [Right Arm] Automatic Cuff Blood Pressure Position [Right Arm] Sitting 02 Sat by Pulse Oximetry 98 Oxygen Delivery Method Room Air Lab Data Lab results reviewed: Yes I reviewed the patient's lab results. Lab Results 01/22/24 21:05: Urine Color Yellow, Urine Appearance Clear, Urine pH 6.0, Ur Specific [place] >= 1.030, Urine Protein Negative, Urine Glucose (UA) 3+, Urine Ketones Negative, Urine Blood Negative, Urine Nitrate Negative, Urine Bilirubin Negative, Urine Urobilinogen 0.2, Ur Leukocyte Esterase Negative, Urine RBC None, Urine WBC Occasional, Ur Squamous Epith Cells Occasional, Urine Bacteria None 01/22/24 21:15: WBC 5.6, RBC 5.79, Hgb 17.0, Hct 53.3 H, MCV 92.0, MCH 29.3, MCHC 31.8, RDW 14.1, Plt Count 179, MPV 8.4, Neut % (Auto) 47.2, Lymph % (Auto) 38.4, [place] % (Auto) 10.3 H, Eos % (Auto) 3.4, Baso % (Auto) 0.7, Neut # (Auto) 2.6, Lymph # (Auto) 2.1, [place] # (Auto) 0.6, Eos # (Auto) 0.2, Baso # (Auto) 0.0, Sodium 140, Potassium 4.2, Chloride 108 H, Carbon Dioxide 26, Anion Gap 10.2, BUN 30 H, Creatinine 0.80, Estimated Creat Clear 144, Estimated GFR 102, Est GFR ( Amer) 124, Glucose 112 H, Calcium 8.9, Total Bilirubin 0.9, AST 43, ALT 25, Alkaline Phosphatase 88, Total Protein 7.9, Albumin 4.7, Globulin 3.2, Albumin/Globulin Ratio 1.5 01/22/24 21:15 01/22/24 21:15 Orders (Tests/Meds): ED MEDICATIONS Discontinued Medications Generic Name Dose Route Start Last Admin Trade Name Stanislav PRN Reason Stop Dose Admin Acetaminophen 1,000 mg 01/22/24 22:18 01/22/24 22:20 Acetaminophen 1,000mg/100ml Vial IV 01/22/24 22:19 1,000 mg ONCE ONE Administration Lactated Ringer's 1,000 mls @ 999 mls/hr 01/22/24 21:30 01/22/24 21:35 Lactated Ringer's 1000 Ml Bag IV 01/22/24 22:30 999 mls/hr .Q1H1M COLBY Administration Ketorolac Tromethamine 15 mg 01/22/24 21:27 01/22/24 21:35 Ketorolac 30mg/Ml Vial IV 01/22/24 21:28 15 mg ONCE ONE Administration Ondansetron HCl 4 mg 01/22/24 21:27 01/22/24 21:35 Ondansetron 4mg/2ml Vial IV 01/22/24 21:28 4 mg ONCE ONE Administration ORDERS Category Date Time Status CT abdomen pelvis wo con Stat Cat Scan 01/22/24 21:27 Completed CBC w/Auto Diff [Complete Blood Count Auto Diff] Stat Lab 01/22/24 21:15 Completed CMP [Comprehensive Metabolic Panel] Stat Lab 01/22/24 21:15 Completed UA [Urinalysis and Microscopic] Stat Lab 01/22/24 21:05 Completed Medical Decision Narrative: Well-appearing 48-year-old with above history and physical most likely consistent with recurrent obstructing kidney stones we will get a noncontrasted CT scan to evaluate for the size and location of the stone for prognostic information as well as diagnostic information to look for alternative explanations. Other things such as AAA are unlikely but possible gas constipation consider other nonemergent things are on the differential as well. Toradol IV fluids Zofran have been administered will reassess. CT scan performed which I personally interpreted I do not see any obstructing kidney stones or evidence of what would be causing the patient symptoms there is a large amount of stool which could be causing some of his discomfort but patient is convinced that they were kidney stone type discomforts. Urinalysis does not have any hematuria either. CT scan read is pending care was transitioned Dr. Nidhi Sommer at 11 PM <Dylan Sommer MD - Last Filed: 01/22/24 23:19> Vital Signs: 01/22/24 21:01 Temperature 98.5 F Temperature Source Oral Pulse Rate [Left] 81 Respiratory Rate 20 Blood Pressure [Right Arm] 151/98 H Blood Pressure Mean [Right Arm] 115 Blood Pressure Source [Right Arm] Automatic Cuff Blood Pressure Position [Right Arm] Sitting 02 Sat by Pulse Oximetry 98 Oxygen Delivery Method Room Air Lab Data Lab Results 01/22/24 21:05: Urine Color Yellow, Urine Appearance Clear, Urine pH 6.0, Ur Specific [place] >= 1.030, Urine Protein Negative, Urine Glucose (UA) 3+, Urine Ketones Negative, Urine Blood Negative, Urine Nitrate Negative, Urine Bilirubin Negative, Urine Urobilinogen 0.2, Ur Leukocyte Esterase Negative, Urine RBC None, Urine WBC Occasional, Ur Squamous Epith Cells Occasional, Urine Bacteria None 01/22/24 21:15: WBC 5.6, RBC 5.79, Hgb 17.0, Hct 53.3 H, MCV 92.0, MCH 29.3, MCHC 31.8, RDW 14.1, Plt Count 179, MPV 8.4, Neut % (Auto) 47.2, Lymph % (Auto) 38.4, [place] % (Auto) 10.3 H, Eos % (Auto) 3.4, Baso % (Auto) 0.7, Neut # (Auto) 2.6, Lymph # (Auto) 2.1, [place] # (Auto) 0.6, Eos # (Auto) 0.2, Baso # (Auto) 0.0, Sodium 140, Potassium 4.2, Chloride 108 H, Carbon Dioxide 26, Anion Gap 10.2, BUN 30 H, Creatinine 0.80, Estimated Creat Clear 144, Estimated GFR 102, Est GFR ( Amer) 124, Glucose 112 H, Calcium 8.9, Total Bilirubin 0.9, AST 43, ALT 25, Alkaline Phosphatase 88, Total Protein 7.9, Albumin 4.7, Globulin 3.2, Albumin/Globulin Ratio 1.5 Orders (Tests/Meds): ED MEDICATIONS Discontinued Medications Generic Name Dose Route Start Last Admin Trade Name Freq PRN Reason Stop Dose Admin Acetaminophen 1,000 mg 01/22/24 22:18 01/22/24 22:20 Acetaminophen 1,000mg/100ml Vial IV 01/22/24 22:19 1,000 mg ONCE ONE Administration Lactated Ringer's 1,000 mls @ 999 mls/hr 01/22/24 21:30 01/22/24 21:35 Lactated Ringer's 1000 Ml Bag IV 01/22/24 22:30 999 mls/hr .Q1H1M COLBY Administration Ketorolac Tromethamine 15 mg 01/22/24 21:27 01/22/24 21:35 Ketorolac 30mg/Ml Vial IV 01/22/24 21:28 15 mg ONCE ONE Administration Ondansetron HCl 4 mg 01/22/24 21:27 01/22/24 21:35 Ondansetron 4mg/2ml Vial IV 01/22/24 21:28 4 mg ONCE ONE Administration ORDERS Category Date Time Status CT abdomen pelvis wo con Stat Cat Scan 01/22/24 21:27 Completed CBC w/Auto Diff [Complete Blood Count Auto Diff] Stat Lab 01/22/24 21:15 Completed CMP [Comprehensive Metabolic Panel] Stat Lab 01/22/24 21:15 Completed UA [Urinalysis and Microscopic] Stat Lab 01/22/24 21:05 Completed Medical Decision Narrative: Well-appearing 48-year-old with above history and physical most likely consistent with recurrent obstructing kidney stones we will get a noncontrasted CT scan to evaluate for the size and location of the stone for prognostic information as well as diagnostic information to look for alternative explanations. Other things such as AAA are unlikely but possible gas constipation consider other nonemergent things are on the differential as well. Toradol IV fluids Zofran have been administered will reassess. CT scan performed which I personally interpreted I do not see any obstructing kidney stones or evidence of what would be causing the patient symptoms there is a large amount of stool which could be causing some of his discomfort but patient is convinced that they were kidney stone type discomforts. Urinalysis does not have any hematuria either. CT scan read is pending care was transitioned Dr. Dylan Sommer at 11 PM. Kemal AGUIAR: I assumed care of the patient at the time of handoff from the prior provider. On reassessment patient reports symptomatic improvement. CT imaging read by radiology and shows no obstructing kidney stones and no other emergent findings. I had an interactive discussion with patient regarding his presentation and the results of his workup. He is discharged in stable condition with return precautions. Critical Care <Diego Eller MD - Last Filed: 01/22/24 22:59> Critical Care Time Critical Care Time: No
[2024-01-22 21:34] LABS: Basophils % 0.7 % (0.1-2.0); Eosinophils # 0.2 K/mm3 (0.0-0.4); Eosinophils % 3.4 % (0.1-12.0); Hematocrit 53.3 % (42.0-52.0); Lymphocytes # 2.1 K/mm3 (0.7-4.5); Lymphocytes % 38.4 % (10-50); Mean Corpuscular HGB Conc 31.8 g/dL (31.8-35.4); Mean Corpuscular Hemoglobin 29.3 pg (27.0-31.2); Mean Platelet Volume 8.4 fl (7.4-10.4); Monocytes # 0.6 K/mm3 (0.1-1.0); Monocytes % 10.3 % (1.7-9.3); Neutrophils # 2.6 K/mm3 (1.8-7.8); Neutrophils % 47.2 % (37.0-80.0); Platelet Count 179 K/mm3 (142-424); Red Blood Count 5.79 M/mm3 (4.60-6.20); Red Cell Distribution Width 14.1 % (11.5-17.5); White Blood Count 5.6 K/mm3 (4.8-10.8)
[2024-01-22] MEDS: ONDANSETRON 4MG/2ML VIAL 4 MG IV (21:35)
[2024-01-22] MEDS: KETOROLAC 30MG/ML VIAL 15 MG IV (21:35)
[2024-01-22] MEDS: LACTATED RINGERS 1000ML 1,000 ML 999 ML IV (21:35)
[2024-01-22 21:36] LABS: Albumin Level 4.7 g/dl (3.5-5.0); Chloride 108 mmol/L (98-107); Potassium 4.2 mmoL/L (3.5-5.1); Sodium 140 mmol/L (136-145)
[2024-01-22 21:38] LABS: Microscopic, Urine URINE MICROSCOPIC (MICROSCOPIC)
[2024-01-22 21:39] LABS: Appearance,Urine CLEAR (Clear); Bilirubin,Urine Negative (Negative); Blood, Urine Negative (Negative); Color,Urine YELLOW (Yellow); Glucose,Urine (UA) 3+ (Negative); Ketones,Urine Negative (Negative); Leukocyte Esterase,Urine Negative (Negative); Nitrate,Urine Negative (Negative); Protein,Urine Negative (Negative); Specific Gravity, Urine >= 1.030 (1.005-1.030); Urobilinogen,Urine 0.2 EU/dl (0.2)
[2024-01-22 21:39] LABS: Alanine Aminotransferase 25 U/L (12-78); Albumin/Globulin Ratio 1.5 (1.1-1.8); Alkaline Phosphatase 88 U/L (38-126); Anion Gap 10.2 mEq/L (5-15); Aspartate Amino Transferase 43 U/L (17-59); Bilirubin,Total 0.9 mg/dl (0.2-1.3); Blood Urea Nitrogen 30 mg/dl (9-20); Carbon Dioxide 26 mmol/L (22.0-30.0); Creatinine Clearance Estimated 144 mL/min (50-200); Estimated Glomerular Filt Rate 102 ml/min (>60); GFR (African American) 124 ML/MIN (>60); Globulin 3.2 g/dL (1.3-3.2); Total Protein,Serum 7.9 g/dl (6.3-8.2)
[2024-01-22 21:40] LABS: Calcium 8.9 mg/dl (8.4-10.2); Glucose 112 mg/dl (74-100)
--- NOTE | 2024-01-22 21:46 | PC.NURSE ---
Patient told that echo lab will be calling her in the AM to schedule an outpatient venous doppler for r/o DVT. Patient given a copy of outpatient order and orginal given to Eve in [facility].
[2024-01-22 21:52] LABS: Squamous Epithelial Cell,Urine Occasional #/hpf (0-5); WBC,Urine Occasional #/hpf (0-3)
[2024-01-22] MEDS: ACETAMINOPHEN 1,000MG/100ML VIAL 1000 MG IV (22:20)
[2024-01-22 23:16] VITALS: BP 129/85; PULSE 73; RESP 12; TEMP 36.8; O2SAT 99
== END 2024-01-22 23:19 | disposition home or self-care (01) ==
PROVIDERS: Emergency Provider Student in an Organized Health Care Education/Training Program; PCP Family Medicine
DX: M54.59 Other low back pain (principal); R10.30 Lower abdominal pain, unspecified; Z87.442 Personal history of urinary calculi
CPT/HCPCS: 74176; 80053; 81001; 85025; 96361; 96374; 96375; 99284; J0131; J1885; J2405; J7120

== ENCOUNTER 2024-01-23 10:34 | Outpatient (CLI) | payer BC, SELFPAY | END 2024-01-23 23:59 | disposition home or self-care (01) | LOC: LAB.DROPOF 01-26 10:34 | PROVIDERS: PCP Family Medicine; Visit Provider Family Medicine | DX: N41.9 Inflammatory disease of prostate, unspecified (principal); R10.9 Unspecified abdominal pain; E11.9 Type 2 diabetes mellitus without complications | CPT/HCPCS: 87086 ==

== ENCOUNTER 2024-10-19 09:41 | Emergency (ER) | payer BC, SELFPAY ==
[2024-10-19 09:49] VITALS: BP 147/106; PULSE 95; RESP 16; TEMP 36.7; O2SAT 99; BMI 27.1
--- OUTSIDE RECORDS SUMMARY | 2024-10-19 09:52 | XMS_ITS | Data Portability ---
Author Organization [facility] YOSHI Barker ADMIN Address [address] [place] [address] Care Team Providers Care Community Relations Police Lieutenant Name Role Phone SOLEDAD PANIAGUA Primary Care Provider [phone] Assessment Encounter Date Assessment Date Assessment LastModified by Organization Details LastModified Time 03/04/2022 03/04/[address] scan report from [facility] once we know where to look. For the patient leaves today he notified as us that the CT scan was performed at the [facility]. Patient will bring in stone for analysis that was passed 1-week ago. Depending on CT scan results, determine next steps. Patient is relatively comfortable now and does not need intervention currently. Will do Litholink study in future. Not available 03/04/2022 17:58:25 03/20/2022 03/20/2022 UA negative today. Litholink order given. Phone visit in 4-6 weeks to discuss. KUB and renal U/S in 6-months. If stable, repeat in 1-year. We will call the radiology department at [facility] and ask them for the size of the left kidney stone for our record. Not available 03/20/2022 15:44:46 06/24/2022 06/24/2022 Data discussed with patient. Will do calcium and PTH labs along with renal panel and uric acid. Will then see the patient to discuss treatment options, which may include the start of medication(s). KUB and renal US annually. [email or web address] Not available 06/24/2022 16:10:21 Plan of Treatment Reminders Order Date Submit Date Provider Last Modified By Organization Details Last Modified Time Details Appointments None recorded. Lab urinalysis , dipstick 2022 023 [email or web address], [address], [address], [place], [address], 3 15:02:40 [facility], urine 2022 [facility] [place] [address] (Registration ), [address], [place], [address], 3 09:39:05 PTH (parathyro id hormone), intact + calcium, serum or plasma 2022 023 [facility], [address] [place] [address], [address], [place], [address], 3 16:12:18 renal function panel, serum 2022 023 [facility], [address] [place] [address], [address], [place], [address], 3 04:54:45 uric acid, serum or plasma 2022 023 [facility], [address], [address], [place], [address], 3 16:12:57 urinalysis , dipstick [address] [facility], [address] [place] [address], [address], [place], [address], 2 15:57:31 urinalysis , dipstick [email or web address] [place] [address] Urolog, [address] [place] [address], [address], [place], [address], 2 15:15:14 Referral None recorded. Procedures None recorded. Surgeries None recorded. Imaging US, renal - Please schedule in 6mos with KUB order 2021 022 [email or web address] [facility] (Centralized Scheduling), [address], [place], [address], 15:57:31 XR, kidney + ureter + bladder - Patient to have done in 6mos with Renal ultrasound 2021 022 [email or web address] [facility] (Centralized Scheduling), [address], [place], [address], 15:57:31 Medication Orders cefdinir 300 mg capsule 2022 023 [facility] 591, [address], [address], 15:01:20 Patient TargetsNo targets recorded. Patient InstructionsNo instructions recorded. Reason for Referral None Reported. Results Created Date Observation Date Name Description Value Unit Range Abnormal Flag Note LastModifiedBy Organization Detail LastModifiedTime 03/04/2003/04/2022 urina lysis , dipst ick Leukocytes (reference range) negati ve Not Available [facility] [address] [place] [address], [address], 03/04/2022 14:52:41 03/04/20 22 03/04/2022 urina lysis , dipst ick Nitrite (reference range:) negati ve Not Available [facility] [address] [place] [address], [address], 03/04/2022 14:52:41 03/04/20 22 03/04/2022 urina lysis , dipst ick Urobilinogen (reference range) 0.2 Not Available [facility] [address] [place] [address], [address], 03/04/2022 14:52:41 03/04/20 22 03/04/2022 urina lysis , dipst ick Protein (reference range) negati ve Not Available [facility] [address] [place] [address] [address], [place], [address], 03/04/2022 14:52:41 03/04/2003/04/2022 urina lysis , dipst ick pH (reference range 5-8.5) 5.0 Not Available [facility] [address] [place] [address] [address], [place], [address], 03/04/2022 14:52:41 03/04/20 22 03/04/2022 urina lysis , dipst ick Blood (reference range:) small Not Available [facility] [address] [place] [address] [address], [place], [address], 03/04/2022 14:52:41 03/04/20 22 03/04/2022 urina lysis , dipst ick Specific Jena (reference range) 1.025 Not Available [facility] [address] [place] [address] [address], [place], [address], 03/04/2022 14:52:41 03/04/2003/04/2022 urina lysis , dipst ick Ketone (reference range) negati ve Not Available [address], [place], [address], 03/04/2022 14:52:41 03/04/20 22 03/04/2022 urina lysis , dipst ick Bilirubin (reference range) negati ve Not Available [facility] [address] [place] [address] [address], [place], [address], 03/04/2022 14:52:41 03/04/20 22 03/04/2022 urina lysis , dipst ick Glucose (reference range) 100 Not Available [facility] [address] [place] [address] [address], [place], [address], 03/04/2022 14:52:41 03/04/2003/04/2022 urina lysis , dipst ick Color (reference range: yellow-brown ) Yellow Not Available [facility] [place] [address] [place] [address] [address], [place], [address], 03/04/2022 14:52:41 03/20/20 22 03/20/2022 urina lysis , dipst ick Leukocytes (reference range) negati ve Not Available [facility] [address] [place] [address] [address], [place], [address], 03/20/2022 15:21:36 03/20/20 22 03/20/2022 urina lysis , dipst ick Nitrite (reference range:) negati ve Not Available [address], [place], [address], 03/20/2022 15:21:36 03/20/20 22 03/20/2022 urina lysis , dipst ick Urobilinogen (reference range) 0.2 Not Available [facility] [place] [address], [place], [address], 03/20/2022 15:21:36 03/20/20 22 03/20/2022 urina lysis , dipst ick Protein (reference range) negati ve Not Available [facility] [address], [place], [address], 03/20/2022 15:21:36 03/20/20 22 03/20/2022 urina lysis , dipst ick pH (reference range 5-8.5) 5.0 Not Available [facility] [address] [place] [address] [address], [place], [address], 03/20/2022 15:21:36 03/20/20 22 03/20/2022 urina lysis , dipst ick Blood (reference range:) negati ve Not Available [facility] [address] [place] [address] [address], [place], [address], 03/20/2022 15:21:36 03/20/20 22 03/20/2022 urina lysis , dipst ick Specific Jena (reference range) 1.020 Not Available [facility] [address] [place] [address] [address], [place], [address], 03/20/2022 15:21:36 03/20/20 22 03/20/2022 urina lysis , dipst ick Ketone (reference range) negati ve Not Available [facility] [address] [place] [address] [address], [place], [address], 03/20/2022 15:21:36 03/20/20 22 03/20/2022 urina lysis , dipst ick Bilirubin (reference range) negati ve Not Available [facility] [address] [place] [address] [address], [place], [address], 03/20/2022 15:21:36 03/20/20 22 03/20/2022 urina lysis , dipst ick Glucose (reference range) negati ve Not Available [facility] [address] [place] [address] [address], [place], [address], 03/20/2022 15:21:36 03/20/20 22 03/20/2022 urina lysis , dipst ick Color (reference range: yellow-brown ) Yellow Not Available [facility] [address] [place] [address] [address], [place], [address], 03/20/2022 15:21:36 03/25/20 23 03/25/2023 urina lysis , dipst ick Leukocytes (reference range) trace Not Available [facility] [address] [place] [address] [address], [place], [address], 03/25/2023 14:43:26 10/03/25/2023 urina lysis , dipst ick Nitrite (reference range:) negati ve Not Available [facility] [address] [place] [address] [address], [place], [address], 03/25/2023 14:43:26 03/25/2003/25/2023 urina lysis , dipst ick Urobilinogen (reference range) 0.2 Not Available [facility] [place] [address] [place] [address] [address], [place], [address], 03/25/2023 14:43:26 03/25/2003/25/2023 urina lysis , dipst ick Protein (reference range) negati ve Not Available [address] [address], [place], [address], 03/25/2023 14:43:26 03/25/2003/25/2023 urina lysis , dipst ick pH (reference range 5-8.5) 6.0 Not Available [address] [address], [place], [address], 03/25/2023 14:43:26 03/25/20 23 03/25/2023 urina lysis , dipst ick Blood (reference range:) modera te Not Available [address] [address], [place], [address], 03/25/2023 14:43:26 03/25/2003/25/2023 urina lysis , dipst ick Specific Jena (reference range) 1.020 Not Available [facility] [place] [address], [place], [address], 03/25/2023 14:43:26 03/25/20 23 03/25/2023 urina lysis , dipst ick Ketone (reference range) small Not Available [facility] [address], [address], 03/25/2023 14:43:26 03/25/20 23 03/25/2023 urina lysis , dipst ick Bilirubin (reference range) negati ve Not Available [facility] [address] [place] [address] [address], [place], [address], 03/25/2023 14:43:26 03/25/20 23 03/25/2023 urina lysis , dipst ick Glucose (reference range) negati ve Not Available [facility] [address] [place] [address] [address], [place], [address], 03/25/2023 14:43:26 03/25/20 23 03/25/2023 urina lysis , dipst ick Color (reference range: yellow-brown ) Yellow Not Available [facility] [address] [place] [address] [address], [place], [address], 03/25/2023 14:43:26 03/04/20 22 01/30/2022 CT, abdom en + pelvi s, w/o contr ast No observ ation record ed. [email or web address] Not Available 2021 16:50:40 03/05/20 CT, abdom en + pelvi s, w/ contr ast No observ ation record ed. Not Available 2021 16:53:25 03/21/20 22 01/30/2022 CT, abdom en + pelvi s, w/ contr ast No observ ation record ed. [email or web address] Not Available 2021 15:37:37 11/12/19 23 11/11/2022 XR, abdom en, 1 view [facility] [address] [place] [address] Phone: Fax: Name: CASSANDRA SALAS Exam Date: 023 : 973 Age 47 Gender : M Access ion: [id number] Physic lola: ISIDRO JULIANi ty: [facility] Fac[facility] HSV: Outpat ient Exam: ABD KUB 1V KUB. HISTOR Y: Nephro lithia sis. FINDIN GS: A single view of the abdome n with a coned- down of the pelvis demons trates a nonspe cific bowel gas patter n. There are surgic al clips in the left abdome n and pelvis . No defini te abnorm al calcif icatio ns are identi fied. There is retain ed stool throug hout the colon. IMPRES ROSSY: Nonspe cific bowel gas patter n. Films review ed , interp reted and dictat ed by Dr.Pop doss Transc ribed by Rachid Vizcaino PA-C. Dictat ed By: KIRAN BLACKMAN Transc ribed By: Kiran Blackman Transc ribed On: 3:41 PM Electr onical ly signed by: KIRAN BLACKMAN Thank you for referr CASSANDRA Bhatt to [facility]. Legall y authen ticate d by POPE KIRAN Patton 11-11 15:41: 15 CC'ed Logic: Orderi ng Provid er: EDWARD BRIGHT Attend ing Provid er: EDWARD BRIGHT Admitt ing Provid er: EDWARD BRIGHT [email or web address] [facility] [address] [place] [address], [place], [address], 11/13/2022 10:42:37 11/13/19 23 11/11/2022 renal ,bila teral US [facility] [address] [place] [address] Phone: Fax: Name: CASSANDRA SALAS Exam Date: : [birth year] Age 47 Gender : M Access ion: [id number] Physic lola: ISIDRO JULIAN Facili ty: [facility] [place] HSV: Outpat ient Exam: RENAL, BILATE RAL US RENAL ULTRAS OUND HISTOR Y: Renal calcul us. PROCED URE: Ultras ound images of the kidney s were obtain ed. FINDIN GS: Limite d images of the liver parenc hyma demons trate normal echoge nicity . The right kidney measur es 12 cm in length . It is normal echoge nicity . There is no hydron ephros is. There is a 1.8 cm cyst. There is a 7 mm echoge cristal foci that may repres ent a renal stone. The left kidney measur es 13 cm in length . It is normal echoge nicity . There is no hydron ephros is. There is a 5.6 cm cyst. IMPRES ROSSY: 1. No hydron ephros is. 2. Possib le small nonobs tructi ng right renal stone. 3. Bilate ral renal cysts. Films review ed , interp reted and dictat ed by Dr. Blackman. Transc ribed by Rachid Vizcaino PA-C. Dictat ed By: KIRAN BLACKMAN Transc ribed By: Kiran Blackman Transc ribed On: 023 8:32 AM Electr onical ly signed by: KIRAN BLACKMAN 023 Thank you for referr CASSANDRA Bhatt to [facility]. Legall y authen ticate d by POPE KIRAN Patton 2022-0 11-12 08:32: 19 CC'ed Logic: Orderi ng Provid er: EDWARD BRIGHT Attend ing Provid er: EDWARD BRIGHT Admitt ing Provid er: EDWARD BRIGHT [email or web address] [facility] [address] [facility], [place], [address], 11/13/2022 10:42:37 Result Notes None recorded. Problems Name Problem SNOMED Code Status Onset Date Resolution Date Notes Provider Name and Address Organization Details Recorded Time Cyst of kidney 818894164 Active 2021 AMILCAR Choi - [place] [facility] [place] 15:03:28 Kidney stone 67365814 Active 2021 AMILCAR Choi - [place] [facility] [place] 2 15:03:34 Left flank pain 697108451 Active 2021 AMILCAR Choi - [facility] & [place] 15:03:38 Microscopic hematuria 157261580 Active 2021 AMILCAR Choi - [facility] & [place] 15:03:42 Notes:Diverticulosis, Diabet es Mellitus Type 2 Nephrolithiasis Urinary Hesitancy Piriformis Syndrome on Right Side Left Lower Quadrant abdominal pain Kidney Stones Problem Notes None recorded. Procedures Surgical History None recorded. Imaging Results Imaging Date Name Status LastModified by Organiz ation Details LastModified Time 01/30/2022 CT, abdomen + pelvis, w/o contrast completed [email or web address] Information not available 03/06/2022 16:50:40 03/05/2022 CT, abdomen + pelvis, w/ contrast completed [email or web address] Information not available 03/05/2022 16:53:25 01/30/2022 CT, abdomen + pelvis, w/ contrast completed [email or web address] Information not available 03/21/2022 15:37:37 11/11/2022 XR, abdomen, 1 view completed [email or web address] [facility] [address] [place], [address], 11/13/2022 10:42:37 11/11/2022 renal,bilater al US completed [email or web address] [facility] [address] [place], [address], 11/13/2022 10:42:37 Procedure Notes None recorded. Medical Equipment None Reported. Allergies No known drug allergies Medications Name Sig Start Date Stop Date Status Note LastModified by Organization Details LastModified Time promethazin e-DM 6.25 mg-15 mg/5 mL oral syrup TAKE 5 ML BY MOUTH EVERY 6 HOURS NEEDED FOR 7 DAYS 03/25 completed Not Available Not Available Not Available ibuprofen 800 mg tablet TAKE 1 TABLET BY MOUTH EVERY 8 HOURS NEEDED FOR MODERATE PAIN 03/04 completed Not Available Not Available Not Available phenazopyri dine 200 mg tablet TAKE 1 TABLET BY MOUTH THREE TIMES DAILY NEEDED PAINFUL URINATION 03/25 completed Not Available Not Available Not Available prednisone 20 mg tablet TAKE 1 TABLET BY MOUTH ONCE DAILY 03/25 completed Not Available Not Available Not Available ciprofloxac in 500 mg tablet TAKE 1 TABLET BY MOUTH TWICE DAILY 03/25 completed Not Available Not Available Not Available ketorolac 10 mg tablet TAKE 1 TABLET BY MOUTH NEEDED EVERY 6 HOURS FOR 5 DAYS, TAKE WITH FOOD OR MILK 03/04 completed Not Available Not Available Not Available oxycodone-a cetaminophe n 5 mg-325 mg tablet TAKE 1 TABLET BY MOUTH EVERY 4 TO 6 HOURS NEEDED FOR PAIN 03/04 completed Not Available Not Available Not Available tamsulosin 0.4 mg capsule TAKE 1 CAPSULE BY MOUTH ONCE DAILY active Not Available Not Available No t Available dicyclomine 20 mg tablet TAKE 1 TABLET BY MOUTH TWICE DAILY NEEDED FOR ABDOMINAL PAIN active Not Available Not Available No t Available oseltamivir 75 mg capsule TAKE 1 CAPSULE BY MOUTH TWICE DAILY 03/25 completed Not Available Not Available Not Available metformin 1,000 mg tablet TAKE 1 TABLET BY MOUTH TWICE DAILY FOR DIABETES active Not Available Not Available No t Available promethazin e 25 mg tablet TAKE 1 TABLET BY MOUTH EVERY 6 HOURS NEEDED FOR 7 DAYS 03/04 completed Not Available Not Available Not Available lisinopril 5 mg tablet active Not Available Not Available Not Available dexamethaso ne sodium phosphate 4 mg/mL injection solution TAKE TO PHYSICAL THERAPY 03/04 completed Not Available Not Available Not Available fluocinonid e 0.05 % topical solution APPLY SOLUTION TOPICALLY ONCE DAILY active Not Available Not Available No t Available methylpredn isolone 4 mg tablets in a dose pack TAKE DIRECTED active Not Available Not Available No t Available doxycycline hyclate 20 mg tablet TAKE 1 TABLET BY MOUTH TWICE DAILY 03/25 completed Not Available Not Available Not Available cefdinir 300 mg capsule TAKE 1 CAPSULE BY MOUTH EVERY 12 HOURS FOR 7 DAYS active Not Available Not Available No t Available naproxen 500 mg tablet TAKE 1 TABLET BY MOUTH TWICE DAILY 03/25 completed Not Available Not Available Not Available amoxicillin 875 mg-potassiu m clavulanate 125 mg tablet TAKE 1 TABLET BY MOUTH EVERY 12 HOURS FOR 10 DAYS 03/04 completed Not Available Not Available Not Available amoxicillin 500 mg-potassiu m clavulanate 125 mg tablet TAKE 2 TABLETS BY MOUTH EVERY 12 HOURS FOR 10 DAYS 03/04 completed Not Available Not Available Not Available clindamycin phosphate 1 % topical solution APPLY TOPICALLY TO SCALP EVERY DAY active Not Available Not Available No t Available Allergy Relief (diphenhydr amine) 25 mg capsule TAKE 1 CAPSULE BY MOUTH AT BEDTIME NIGHTLY NEEDED FOR ALLERGIC REACTION active Not Available Not Available No t Available chlorhexidi ne gluconate 0.12 % mouthwash RINSE WITH 15ML FOR 30 SECONDS AND SPIT USE TWICE DAILY. 03/04 completed Not Available Not Available Not Available omeprazole 20 mg tablet,taty yed release TAKE 1 TABLET BY MOUTH TWICE DAILY active Not Available Not Available No t Available Pennsaid 20 mg/gram/act uation (2 %) topical soln in metered-dos e pump 03/04 completed Not Available Not Available Not Available Jardiance 25 mg tablet TAKE 1 TABLET BY MOUTH ONCE DAILY 03/25 completed Not Available Not Available Not Available Flowflex COVID-19 Antigen Home Test kit Use as Directed on the Package active Not Available Not Available No t Available Vitals Date Recorded Body height Body mass index (BMI) Body weight Systolic blood pressure Diastolic blood pressure Provider Name and Address Organization Details Last Updated DateTime 06/24/2022 182.88 cm 29.8 kg/m2 41898.32 g 155 mm[Hg] 90 mm[Hg] Lenka Darrell [place] [facility] & [place] 3 15:36:53 Date Recorded Body height Body mass index (BMI) Body weight Systolic blood pressure Diastolic blood pressure Provider Name and Address Organization Details Last Updated DateTime 11/19/2022 182.88 cm 29.8 kg/m2 28155.32 g 120 mm[Hg] 72 mm[Hg] Mandie Brent FITZGERALD [facility] & [place] 3 15:26:17 Date Recorded Body height Body mass index (BMI) Body weight Body temperature Systolic blood pressure Diastolic blood pressure Provider Name and Address Organization Details Last Updated DateTime 2 182.88 cm 29.3 kg/m2 03985.3 9 g 98 [degF] 134 mm[Hg] 70 mm[Hg] aMndie FITZGERALD - [facility] & [place] 2 14:49:57 Date Recorded Body height Body mass index (BMI) Body weight Body temperature Systolic blood pressure Diastolic blood pressure Provider Name and Address Organization Details Last Updated DateTime 3 182.88 cm 26.4 kg/m2 03466.5 1 g 98 [degF] 132 mm[Hg] 76 mm[Hg] Mandie FITZGERALD [facility] & [place] 3 14:49:56 Date Recorded Body height Body mass index (BMI) Body weight Systolic blood pressure Diastolic blood pressure Provider Name and Address Organization Details Last Updated DateTime 03/20/2022 182.88 cm 29.9 kg/m2 97556.76 g 126 mm[Hg] 70 mm[Hg] [facility] & [place] 2 15:16:04 Social History None recorded. Functional Status Question Answer Note LastModified by Organizat ion Details LastModified Time Do you use any illicit or recreational drugs? No Information not available 02/25/2022 What is your level of alcohol consumption? None Information not available 02/25/2022 Mental Status None recorded. Family History Relationship Description Onset Age of this Age Resolved Age Notes LastModified by Organization Details LastModified Time Father No current problems or disability [email or web address] Not available 02/25 11:17:41 Mother No current problems or disability [email or web address] Not available 02/25 11:17:41 Medical History Condition Response Diverticulitis Y Past Encounters Encounter ID Performer Location Encounter Start Date Encounter Closed Date Diagnosis/Indication Diagnosis SNOMED-CT Code Diagnosis ICD10 Code Diagnosis Note [id number] Isidro Massey MD [facility] [address] [place] [address] 03/04/2022 14:09:05 03/04/2022 15:21:58 Cyst of kidney 298824148 N28.1 Left Kidney stone 62654949 N2 0.0 Left flank pain 98254062 9 R10.9 Microscopic hematuria 19 3292731 R31.29 [id number] Isidro Massey MD [facility] [address] [place] [id number] 03/20/2022 15:05:37 03/20/2022 15:53:12 History of calculus of kidney 309301383 Z87.442 Cyst of kidney 810546827 N28.1 Left Left flank pain 17081198 9 R10.9 Microscopic hematuria 19 1736675 R31.29 [id number] Isidro Massey MD [facility] [address] [place] [address],[address] [place] [id number] 06/24/2022 14:41:55 06/24/2022 16:16:18 History of calculus of kidney 243791830 Z87.442 Cyst of kidney 860174532 N28.1 Left Left flank pain 30598365 9 R10.9 Microscopic hematuria 19 9715324 R31.29 [id number] Huyen West NP, S [facility] [address] [place] [address],[address] [place] [id number] 11/19/2022 15:10:31 11/20/2022 08:34:01 History of calculus of kidney 688641649 Z87.442 renal ultrasound and KUB results discussed with patient clinic today.Dinora ent return to clinic in 6 months for follow-up with KUB. will repeat renal ultrasound in 1 year. Cyst of kidney 044434740 N28.1 Nocturia 347222873 R35.1 History of diabetes mellitus 239997478 Z86.39 [id number] Huyen West NP, S [facility] [address] [place] [address],[address] [place] [id number] 03/25/2023 14:37:01 03/25/2023 14:57:17 History of calculus of kidney 492201947 Z87.442 Cyst of kidney 476866023 N28.1 Nocturia 390105081 R35.1 History of diabetes mellitus 721906351 Z86.39 Recurrent urinary tract infection 960694447 N39.0 UA positive for infection. Send for culture and sensivityS tart Cefdinir 300mg bidRTC in 2 weeks for f/u Health Concerns Section Related Observation LastModified by Organization Detai ls LastModified Time None Recorded Concern Status LastModified by Organization Details LastModified Time None Recorded Advance Directives Directive None Recorded Payers Insurance Date Sequence Insurance Name Policy Number Policy Brower Covered Member ID Brower Member ID Guarantor Name 12/20/2023 1 [place] [id number] Cassandra Salas [id number] Cassandra Salas Notes Date Note Type Note Provider Name and Address Organization Details Recorded Time 03/04/2022 text/html History of stone s and left renal cysts. Diagnosed 3-years ago. Apparently had it drained by radiology in the past. Occasional left flank pain. Saw PCP on 01/21/22 with these complaints. Saw PCP on 06/20/21 with an obstructing right ureteral stone. Intermittent left flank pain that is variable. Most recent pain and symptoms started acutely on 01/21/22. Occasional pain is dull. Microscopic hematuria on 02/25/22. No LUTS, GI symptoms, hematuria, or dysuria. Patient had CT done in [place] about a month ago. Patient states he passed a kidney stone approximately 1-week ago and had hematuria and left flank pain along with it. CT of abdomen and pelvis with IV contrast at [facility] on 04/24/21 showed small hyper density along posterior aspect of the gallbladder, a benign appearing 6 cm left renal cyst, a non obstructing 4 mm mid right kidney stone and a 5 mm non obstructing left lower pole kidney stone. UA from 01/22/22 showed small blood and small bilirubin. Creatinine 0.89. Isidro Massey MD [address] [facility], [place], [address], [place] - [facility] - [place] 03/04/2022 17:59:10 03/20/2022 text/html Patient returns to clinic today for follow-up of a history of kidney stones and renal cysts. The patient underwent a CT scan of the abdomen with contrast at [facility] on 01/30/2022. This showed a 6 cm left renal cyst. There was a non obstructing stone seen in the inferior pole of the left kidney although this was not measured. 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 Patient also had fatty liver described. Patient passed a stone around 02/06/22, lost stone. See below for past history: Past history from 03/04/22: {History of stones and left renal cysts. Diagnosed 3-years ago. Apparently had it drained by radiology in the past. Occasional left flank pain. Saw PCP on 01/21/22 with these complaints. Saw PCP on 06/20/21 with an obstructing right ureteral stone. Intermittent left flank pain that is variable. Most recent pain and symptoms started acutely on 01/21/22. Occasional pain is dull. Microscopic hematuria on 02/25/22. No LUTS, GI symptoms, hematuria, or dysuria. Patient had CT done in [place] about a month ago. Patient states he passed a kidney stone approximately 1-week ago and had hematuria and left flank pain along with it.CT of abdomen and pelvis with IV contrast at [facility] on 04/24/21 showed small hyper density along posterior aspect of the gallbladder, a benign appearing 6 cm left renal cyst, a non obstructing 4 mm mid right kidney stone and a 5 mm non obstructing left lower pole kidney stone. UA from 01/22/22 showed small blood and small bilirubin. Creatinine 0.89.} Isidro Massey MD [address] [facility], [place], [address], [place] [facility] - [place] 04/03/2022 10:31:31 06/24/2022 text/html History of kidne y stones and renal cysts. History of a 6mm left renal cyst and a non obstructing stone in the lower pole of the left kidney. Seen on CT scan from 01/30/22. Patient has had a Litholink study, which has revealed a urine volume of 1.48 liters, an elevated SS of CAOX, and an elevated urine calcium. Patient also has an elevated urine uric acid and borderline elevated uric acid SS. Also elevated is the CaP SS. Past history from 03/20/22: {History of kidney stones and renal cysts. The patient underwent a CT scan of the abdomen with contrast at [facility] on 01/30/2022. This showed a 6 cm left renal cyst. There was a non obstructing stone seen in the inferior pole of the left kidney although this was not measured. 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 Patient also had fatty liver described. Patient passed a stone around 02/06/22, lost stone.} Past history from 03/04/22: {History of stones and left renal cysts. Diagnosed 3-years ago. Apparently had it drained by radiology in the past. Occasional left flank pain. Saw PCP on 01/21/22 with these complaints. Saw PCP on 06/20/21 with an obstructing right ureteral stone. Intermittent left flank pain that is variable. Most recent pain and symptoms started acutely on 01/21/22. Occasional pain is dull. Microscopic hematuria on 02/25/22. No LUTS, GI symptoms, hematuria, or dysuria. Patient had CT done in [place] about a month ago. Patient states he passed a kidney stone approximately 1-week ago and had hematuria and left flank pain along with it.CT of abdomen and pelvis with IV contrast at [facility] on 04/24/21 showed small hyper density along posterior aspect of the gallbladder, a benign appearing 6 cm left renal cyst, a non obstructing 4 mm mid right kidney stone and a 5 mm non obstructing left lower pole kidney stone. UA from 01/22/22 showed small blood and small bilirubin. Creatinine 0.89.} Isidro Massey MD [address], [place], [address], [facility] - [place] - [place] 06/26/2022 17:44:17 11/19/2022 text/html 47 yowm RTC for f/u of Renal US and KUB results. Patient had a renal ultrasound on 11/11/2022 that revealed a 1.8 cm cyst in the right kidney and a 5.6 cm cyst in the left kidney. Possible small and nonobstructing right renal stone. KUB was unremarkable without any evidence of any calcifications. Previous litho link revealed elevated urine calcium and urine uric acid. Patient had PTH that was elevated at 61.5. Renal function panel was unremarkable except for glucose was 107. Patient referred to [facility] for further evaluation of elevated PTH level. Patient reports he was evaluated and states they explained he does not need any treatment at this time and no follow-up was made. Since last visit on 06/24/2022 he denies any renal colic symptoms nor has he passed any stones. Reports urinary stream is occasionally weak. Nocturia x2, reports he recently started Jardiance. He denies any dysuria or gross hematuria. CT scan of abdomen with contrast on 01/30/2022 revealed a 6 cm left renal cyst. Huyen West NP, [address], [place], [address], [place] [facility] - [place] 11/19/2022 15:52:18 03/25/2023 text/html 48 yowm presents to clinic for evaluation of burning with urination. Patient reports for the past 2 weeks been experiencing with urination and weak urinary he denies any fever chills, nausea, vomiting gross hematuria urgency or frequency. States bowel are good. Pt is a DM. Pt has h/o kidney stones and renal cyst. Previous Visit: [47 yowm RTC for f/u of Renal US and KUB results. Patient had a renal ultrasound on 11/11/2022 that revealed a 1.8 cm cyst in the right kidney and a 5.6 cm cyst in the left kidney. Possible small and nonobstructing right renal stone. KUB was unremarkable without any evidence of any calcifications. Previous litho link revealed elevated urine calcium and urine uric acid. Patient had PTH that was elevated at 61.5. Renal function panel was unremarkable except for glucose was 107. Patient referred to [facility] for further evaluation of elevated PTH level. Patient reports he was evaluated and states they explained he does not need any treatment at this time and no follow-up was made. Since last visit on 06/24/2022 he denies any renal colic symptoms nor has he passed any stones. Reports urinary stream is occasionally weak. Nocturia x2, reports he recently started Jardiance. He denies any dysuria or gross hematuria. CT scan of abdomen with contrast on 01/30/2022 revealed a 6 cm left renal cyst.] Huyen West, JAZIEL, [address], [place], [address], [place] [facility] [place] 03/25/2023 15:01:34
--- NOTE | 2024-10-19 09:53 | ECG_ITS ---
APPROVED REPORT Exam: Resting ECG HR:92 bpm ECG Measurements Heart Rate 92 AXES AL 180 P 51 QRSd 85 QRS 34 QT 329 T 48 QTc 379 Conclusion SINUS RHYTHM POSSIBLE LEFT ATRIAL ENLARGEMENT [-0.1mV P-WAVE IN V1/V2] EARLY REPOLARIZATION [ST ELEVATION WITH NORMALLY INFLECTED T-WAVE] BORDERLINE ECG No STEMI Electronically signed by : NAN SELLERS, 10/20/2024 02:56:54
[2024-10-19 10:00] VITALS: BP 124/94; PULSE 92; RESP 16; O2SAT 98
[2024-10-19 10:14] LABS: Basophils % 0.6 % (0.1-2.0); Eosinophils # 0.1 Kmm3 (0.0-0.4); Eosinophils % 1.7 % (0.1-12.0); Immature Granulocytes # 0.02 10^3uL; Immature Granulocytes % 0.3 %; Lymphocytes # 1.7 K/mm3 (0.7-4.5); Lymphocytes % 24.9 % (10-50); Mean Corpuscular HGB Conc 33.5 g/dL (31.8-35.4); Mean Corpuscular Hemoglobin 29.2 pg (27.0-31.2); Mean Corpuscular Volume 87.1 fl (80-94); Mean Platelet Volume 10.7 fl (7.4-10.4); Monocytes # 0.6 K/mm3 (0.1-1.0); Monocytes % 9.1 % (1.7-9.3); Neutrophils # 4.4 K/mm3 (1.8-7.8); Neutrophils % 63.4 % (37.0-80.0); Nucleated Red Blood Cells # 0 10^3/uL; Nucleated Red Blood Cells % 0 %; Platelet Count 202 K/mm3 (142-424); Red Cell Distribution Width 12.7 % (11.5-17.5); Red Cell Distribution Width-SD 40.2 fL
[2024-10-19 10:20] LABS: Alanine Aminotransferase 22 U/L (12-78); Albumin Level 4.5 g/dl (3.5-5.0); Albumin/Globulin Ratio 1.6 (1.1-1.8); Alkaline Phosphatase 94 U/L (38-126); Anion Gap 10.2 mEq/L (5-15); Aspartate Amino Transferase 30 U/L (17-59); Blood Urea Nitrogen 22 mg/dl (9-20); Calcium 9.3 mg/dl (8.4-10.2); Carbon Dioxide 27 mmol/L (22.0-30.0); Chloride 105 mmol/L (98-107); Creatinine Clearance Estimated 125 mL/min (50-200); Estimated Glomerular Filt Rate 89 ml/min (>60); GFR (African American) 108 ML/MIN (>60); Globulin 2.9 g/dL (1.3-3.2); Glucose 149 mg/dl (74-100); Potassium 4.2 mmoL/L (3.5-5.1); Sodium 138 mmol/L (136-145); Total Protein,Serum 7.4 g/dl (6.3-8.2)
[2024-10-19 10:21] VITALS: BP 112/79; BP 112/89; BP 122/86; PULSE 110; PULSE 87; PULSE 99
[2024-10-19 10:23] LABS: Coronavirus 19, PCR Not Detected (NotDetected); Influenza A, PCR Not Detected (NotDetected); Influenza B, PCR Not Detected (NotDetected)
--- NOTE | 2024-10-19 10:23 | PC.NURSE ---
did orthostatic BPs and CT. charted
[2024-10-19 10:24] LABS: D-Dimer 0.49 ug/mL (0.0-0.5)
[2024-10-19 10:30] VITALS: BP 116/82; PULSE 94; RESP 18; O2SAT 95
[2024-10-19 10:33] LABS: Troponin I < 0.01 ng/ml (0.00-0.034)
[2024-10-19 10:37] LABS: T4 (Thyroxine) 10.7 ug/dl (5.53-11.0)
[2024-10-19 10:40] LABS: Hemoglobin 18.1 g/dL (14.1-18.0)
[2024-10-19] MEDS: LACTATED RINGERS 1000ML 1,000 ML 999 ML IV (10:42)
--- NOTE | 2024-10-19 10:46 | HMH.EDGENADL ---
Discharge Plan Disposition Patient Disposition: Home, Self-Care Condition: Good Prescriptions Prescriptions: New fluticasone propionate [Flonase Allergy Relief] 50 mcg/actuation spray,suspension 1 spray intranasal DAILY Qty: 16 0RF Rx Instructions: administer into each nostril cetirizine [Zyrtec] 10 mg tablet 10 mg PO DAILY Qty: 30 0RF No Action alprazolam 1 mg tablet 1 mg PO Q4-5H Qty: 5 1RF (DME) FreeStyle Nelda 14 Day Sensor Kit See Rx Instructions .Route Qty: 1 11RF Rx Instructions: As directed (DME) FreeStyle Nelda 14 Day [place] Misc See Rx Instructions .Route Qty: 1 0RF Rx Instructions: As directed naproxen [Naprosyn] 500 mg tablet 500 mg PO BID Qty: 60 1RF tamsulosin [Flomax] 0.4 mg capsule 0.4 mg PO DAILY Qty: 90 3RF dicyclomine 20 mg tablet 20 mg PO BID Qty: 180 0RF Rx Instructions: TAKE 1 TABLET BY MOUTH TWICE DAILY NEEDED FOR ABDOMINAL PAIN Jardiance 25 mg tablet 25 mg PO DAILY Qty: 90 1RF Rx Instructions: Take 1 tablet by mouth once daily Referrals Follow up/Referrals: Gaurav Ervin MD [Primary Care Provider] - See instructions Michael Doan MD [Staff Physician] - See instructions Activity Restrictions/Add. Instructions Additional Instructions/Restrictions: You were evaluated in the emergency department today. At this time, your labs are reassuring. Most of the time, upper respiratory infections such as sinus infections are caused by a viral illness. We are not prescribing antibiotics at this time. If your symptoms worsen beyond 7 to 10 days, I would recommend very close follow-up with your PCP to consider antibiotics at that time. I do not feel that they are indicated right now, as your symptoms are likely viral and should resolve on their own. Please orange picker your prescriptions and take them to help with your symptoms. We have provided you with a Holter monitor. You will wear this for 48 hours. Follow-up with cardiology for the results of this. Please call their office to schedule an appointment. Make sure you stay hydrated and drink plenty of fluids. Return to the emergency department right away for new or worsening symptoms Clinical Impressions Clinical Impression: Palpitations, Syncope, URI (upper respiratory infection) Stand Alone Forms Stand Alone Forms: Work/School Release Instructions Patient Instructions: DI for Syncope in Adults (Fainting), DI for Dehydration -- Adult, DI for Palpitations Print Language Print Language: Greenlandic Discharge ED Provider: Parul Menjivar General Adult HPI General Chief complaint: Syncope Stated complaint: AO 10/19/24 0200 Passed-Out Time Seen by Provider: 10/19/24 09:49 Mode of Arrival: Ambulatory Source of Information: Patient Description of Symptoms (Recalled from ER Triage Doc. by RN): patient states he had a syncopal episode lastnight around 2am, he fell and hit his right elbow while going to bathroom. he feels like his heart is racing, reports having history of afib and that he has a sinus infection History of Present Illness HPI narrative: This patient is a 49-year-old male with a history of type 2 diabetes and prior reported remote history of atrial fibrillation for which she states he was monitored but did not require medication or intervention presented to the emergency department for evaluation with concern for syncope. Patient reports that at 2:00 this morning, he woke up to go to the bathroom, started feeling lightheaded like his heart was racing, and then leaned against the door, slumped down on the floor, and passed out. witnessed this and stated he did not hit his head. He states he has some right elbow pain from hitting it during this episode, but he is able to move it fine and thinks it is just bruised. He was only out for a short period of time with no seizure-like activity, no tongue biting, no loss of bladder/bowel function. He experienced no prodrome of chest pain, shortness of breath, abdominal pain, back pain, or other concerns. He notes that he was very dizzy when he first woke up, but this resolved and now he is feeling okay. He does note that he had 2 to 3 days of upper respiratory infection type symptoms and thinks he might have a sinus infection. No other concerns or complaints noted at this time. Related Data Previous Rx's ?Medication ?Instructions ?Recorded flash glucose scanning reader #1 ea 01/02/23 (FreeStyle Nelda 14 Day [place]) flash glucose sensor (FreeStyle #1 ea 01/02/23 Nelda 14 Day Sensor kit) naproxen 500 mg tablet (Naprosyn) 500 mg PO BID #60 tabs 01/26/24 tamsulosin 0.4 mg capsule (Flomax) 0.4 mg PO DAILY #90 caps 04/16/24 alprazolam 1 mg tablet 1 mg PO Q4-5H #5 tabs 06/16/24 dicyclomine 20 mg tablet 20 mg PO BID #180 tabs 07/29/24 empagliflozin 25 mg tablet 25 mg PO DAILY #90 tabs 09/23/24 (Jardiance) cetirizine 10 mg tablet (Zyrtec) 10 mg PO DAILY #30 tabs 10/19/24 fluticasone propionate 50 1 spray intranasal DAILY #16 grams 10/19/24 mcg/actuation nasal spray,suspension (Flonase Allergy Relief) Allergies Allergy/AdvReac Type Severity Reaction Status Date / Time No Known Allergies Allergy Verified 06/16/24 15:39 [facility] Disclaimer: The information contained in this section may have been updated after the patient was seen, as this information can be updated by other users. 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 current occupational exposures/hazards: Yes caffeine: No Have you lived/traveled outside US in past 30 days?: No Contact w/someone who lives/traveled outside US past 30 days?: No Exposure to someone with infectious disease in past 14 days?: No Do you have a fever (greater than 100.4 F or 38 C)?: No Have you tested positive for COVID-19?: No Exposed to someone with COVID-19 in past 14 days?: No Do you have a sore throat?: No Do you have a cough?: No Do you have any weakness?: No Do you have any diarrhea?: No Are you experiencing any unusual bleeding?: No Do you have any muscle aches/pain?: No Do you have any abdominal pain?: No Are you experiencing loss of taste or smell?: No Other Medical History Have you received the Flu Vaccine for this season: No Have you received the Pneumonia Vaccine: No ROS Obtained: Yes All systems reviewed & no additional complaints except as documented Physical Exam General General appearance: alert and in no apparent distress Head Head exam: atraumatic and normocephalic Eye Eye exam: Present normal appearance, PERRL and EOMI ENT ENT exam: Present normal exam, normal oropharynx, mucous membranes moist and normal external ear exam Neck Neck exam: Present normal inspection, full ROM and trachea midline; Absent tenderness Chest Chest inspection: Present normal inspection and symmetric chest wall rise; Absent tenderness Respiratory Respiratory exam: Present normal lung sounds bilaterally; Absent respiratory distress, wheezes, stridor or accessory muscle use Cardiovascular Cardiovascular exam: Present regular rate and normal rhythm Abdominal Exam Abdominal exam: Present soft; Absent distention, tenderness or guarding Extremities Exam Extremities exam: Present normal inspection, full ROM and normal capillary refill; Absent tenderness or edema Back Exam Back exam: Present normal inspection and full ROM; Absent tenderness Neurological Exam Neurological exam: Present alert, oriented X3, CN II-XII intact and normal gait; Absent motor sensory deficit Psychiatric Psychiatric exam: Present normal affect and normal mood Skin Skin exam: Present warm and dry Medical Decision Making Medical Records Medical records reviewed: Yes I reviewed the patient's medical records. Screening: Per USPSTF and CDC recommendations, given the prevalence of disease in our region, it is our hospital?s policy to screen for HIV and viral Hepatitis for all patients aged 18 and over and those with ongoing risk factors. Trevor Inquiry Pt receiving controlled substance: No Vital Signs: 10/19/24 09:49 10/19/24 10:00 10/19/24 10:21 Temperature 98.1 F Temperature Source Oral Pulse Rate 92 H Pulse Rate [Orthostatic Lying] 87 Pulse Rate [Orthostatic Sitting] 99 H Pulse Rate [Orthostatic Standing] 110 H Pulse Rate [Right Radial] 95 H Respiratory Rate 16 16 Blood Pressure 124/94 H Blood Pressure [Orthostatic Lying] 112/79 Blood Pressure [Orthostatic Sitting] 122/86 Blood Pressure [Orthostatic Standing] 112/89 Blood Pressure [Right Arm] 147/106 H Blood Pressure Mean Blood Pressure Mean [Right Arm] 119 Blood Pressure Source Blood Pressure Source [Right Arm] Automatic Cuff Blood Pressure Position Blood Pressure Position [Right Arm] Supine 02 Sat by Pulse Oximetry 99 98 Oxygen Delivery Method Room Air 10/19/24 10:30 10/19/24 11:00 10/19/24 11:30 Temperature 98.0 F Temperature Source Oral Pulse Rate 94 H 81 79 Pulse Rate [Orthostatic Lying] Pulse Rate [Orthostatic Sitting] Pulse Rate [Orthostatic Standing] Pulse Rate [Right Radial] Respiratory Rate 18 19 18 Blood Pressure 116/82 121/86 122/81 Blood Pressure [Orthostatic Lying] Blood Pressure [Orthostatic Sitting] Blood Pressure [Orthostatic Standing] Blood Pressure [Right Arm] Blood Pressure Mean 92 Blood Pressure Mean [Right Arm] Blood Pressure Source Automatic Cuff Blood Pressure Source [Right Arm] Blood Pressure Position Sitting Blood Pressure Position [Right Arm] 02 Sat by Pulse Oximetry 95 99 Oxygen Delivery Method Room Air Room Air 10/19/24 11:30 Temperature Temperature Source Pulse Rate 84 Pulse Rate [Orthostatic Lying] Pulse Rate [Orthostatic Sitting] Pulse Rate [Orthostatic Standing] Pulse Rate [Right Radial] Respiratory Rate 18 Blood Pressure 122/81 Blood Pressure [Orthostatic Lying] Blood Pressure [Orthostatic Sitting] Blood Pressure [Orthostatic Standing] Blood Pressure [Right Arm] Blood Pressure Mean 92 Blood Pressure Mean [Right Arm] Blood Pressure Source Blood Pressure Source [Right Arm] Blood Pressure Position Blood Pressure Position [Right Arm] 02 Sat by Pulse Oximetry 100 Oxygen Delivery Method Lab Data Lab results reviewed: Yes I reviewed the patient's lab results. Lab Results 10/19/24 09:57: WBC 7.0, RBC 6.20, Hgb 18.1 H, Hct 54.0 H, MCV 87.1, MCH 29.2, MCHC 33.5, RDW 12.7, Plt Count 202, MPV 10.7 H, Neut % (Auto) 63.4, Lymph % (Auto) 24.9, [place] % (Auto) 9.1, Eos % (Auto) 1.7, Baso % (Auto) 0.6, Neut # (Auto) 4.4, Lymph # (Auto) 1.7, [place] # (Auto) 0.6, Eos # (Auto) 0.1, Baso # (Auto) 0.0, D-Dimer 0.49, Sodium 138, Potassium 4.2, Chloride 105, Carbon Dioxide 27, Anion Gap 10.2, BUN 22 H, Creatinine 0.90, Estimated Creat Clear 125, Estimated GFR 89, Est GFR ( Amer) 108, Glucose 149 H, Calcium 9.3, Magnesium 2.0, Total Bilirubin 1.0, AST 30, ALT 22, Alkaline Phosphatase 94, Troponin I < 0.01, Total Protein 7.4, Albumin 4.5, Globulin 2.9, Albumin/Globulin Ratio 1.6, TSH 0.48, Thyroxine (T4) 10.7, HCV Ab KENNA w/Rflx PCR Qn Negative, HIV Ag/Ab Combo Qual Negative 10/19/24 10:17: SARS-CoV-2 (PCR) Not detected, Influenza A Untype (PCR) Not detected, Influenza Type B (PCR) Not detected 10/19/24 09:57 10/19/24 09:57 Orders (Tests/Meds): ED MEDICATIONS Discontinued Medications Generic Name Dose Route Start Last Admin Trade Name Freq PRN Reason Stop Dose Admin Lactated Ringer's 1,000 mls @ 999 mls/hr 10/19/24 10:38 10/19/24 10:42 Lactated Ringer's 1000 Ml Bag IV 10/19/24 11:38 999 mls/hr .Q1H1M ONE Administration ORDERS Category Date Time Status CBC w/Auto Diff [Complete Blood Count Auto Diff] Stat Lab 10/19/24 09:57 Completed CMP [Comprehensive Metabolic Panel] Stat Lab 10/19/24 09:57 Completed D-Dimer Stat Lab 10/19/24 09:57 Completed HIV Combo Stat Lab 10/19/24 09:57 Completed Hepatitis C Ab Qual. W/ RFX Stat Lab 10/19/24 09:57 Completed MAG [Magnesium] Stat Lab 10/19/24 09:57 Completed Rapid PCR Covid and Flu A/B Stat Lab 10/19/24 10:17 Completed T4 (Thyroxine) Stat Lab 10/19/24 09:57 Completed TSH [Thyroid Stimulating Hormone] Stat Lab 10/19/24 09:57 Completed Trop I [Troponin I] Stat Lab 10/19/24 09:57 Completed ECG holter initial pfn Stat Y 10/19/24 11:06 Completed ECG Data Tracing #1: I reviewed this ECG and interpreted as documented below: Normal sinus rhythm with a ventricular to 92 bpm. No acute STEMI. Nonspecific ST/T wave changes that are likely benign early repolarization. Normal intervals ECG initial impression date: 10/19/24 ECG initial impression time: 09:54 Medical Decision Narrative: In summary, this patient is a 49-year-old presenting to the Emergency Department for evaluation of syncopal episode in the setting of 2 to 3 days of URI type symptoms. Differential diagnoses considered include but are not limited to vasovegal syncope, orthostatic hypotension, dysrhythmia, PE, viral syndrome, sinusitis. Ruling out the most morbid conditions drove assessment. It should be noted patient's history includes type 2 diabetes which may or may not be at goal therapy. This complicates all aspects of care by increasing patient's risk for morbidity. I reviewed patient's past medical records and noted prior PCP evaluations for maintenance of health. On exam, the patient is sitting upright in no acute distress. He is neurologically intact without any focal deficits, cardiopulmonary exam is reassuring. Vitals are normal on cardiac telemetry with the exception of mild hypertension. PE considered in the setting of syncope and palpitations, though the patient has no chest pain or shortness of breath. Cannot use PERC criteria to exclude PE given age greater than 50, however I feel that he is very low risk based on Wells score. Workup included CBC, CMP, troponin, TSH, T4, magnesium, viral swab, EKG. On reassessment, the patient is resting comfortably and is feeling much better after IV fluids. He states that the IV fluids made a big difference in how he feels. He initially had tachycardia noted on orthostatic vital signs, which could indicate volume depletion. Labs demonstrated mild hemoconcentration, mildly elevated BUN consistent with slight volume contraction. Chemistries reassuring otherwise. Troponin negative, D-dimer negative. EKG obtained is very reassuring. Patient was provided with a Holter monitor given reported history of dysrhythmia, though there is no evidence of dysrhythmia on cardiac telemetry here today. I feel he is appropriate for discharge home with close follow-up with primary care provider and durable medical equipment technician. He was given instructions for this as well as strict return precautions Critical Care Critical Care Time Critical Care Time: No
[2024-10-19 10:51] LABS: Thyroid Stimulating Hormone 0.48 uIU/mL (0.465-4.68)
[2024-10-19 11:00] VITALS: BP 121/86; PULSE 81; RESP 19; O2SAT 99
[2024-10-19 11:05] LABS: Hepatitis C Ab Qual. W/ RFX NEGATIVE (Negative)
--- NOTE | 2024-10-19 11:24 | PC.NURSE ---
RESPIRATORY NOTIFIED OF HOLTER MONITOR ORDER
[2024-10-19 11:30] VITALS: BP 122/81; PULSE 79; PULSE 84; RESP 18; TEMP 36.7; O2SAT 100
[2024-10-19 11:48] LABS: HIV Combo NEGATIVE (Negative)
== END 2024-10-19 11:45 | disposition home or self-care (01) ==
PROVIDERS: Emergency Provider Emergency Medicine; PCP Family Medicine
DX: R55 Syncope and collapse (principal); R00.2 Palpitations; J06.9 Acute upper respiratory infection, unspecified; M25.521 Pain in right elbow; E11.9 Type 2 diabetes mellitus without complications; W18.30XA Fall on same level, unspecified, initial encounter; Z11.59 Encounter for screening for other viral diseases; Z11.4 Encounter for screening for human immunodeficiency virus [HIV]
CPT/HCPCS: 80053; 83735; 84436; 84443; 84484; 85025; 85378; 86803; 87389; 87636; 93005; 93225; 93227; 96360; 99284; J7120